=== PATIENT | female | born 1990 | race Caucasian/White ===

== ENCOUNTER 2023-06-25 21:06 | Outpatient (CLI) | payer BC | END 2023-06-25 21:07 | disposition left against medical advice (07) | LOC: EMS 21:06 | DX: R06.4 Hyperventilation (principal); R11.10 Vomiting, unspecified ==

== ENCOUNTER 2023-10-22 11:45 | Outpatient (CLI) | payer BC ==
[2023-10-22 14:43] LABS: BASOPHILS # (AUTO) 0.1 10^3/uL (0.0-0.1); BASOPHILS % (AUTO) 0.6 %; EOSINOPHILS # (AUTO) 0.3 10^3/uL (0.0-0.7); EOSINOPHILS % (AUTO) 2.7 %; HCT - HEMATOCRIT 43.2 % (37.0-47.0); LYMPHOCYTES % (AUTO) 31.2 %; MEAN CORPUSCULAR HEMOGLOBIN 29.5 pg (27.0-31.0); MEAN CORPUSCULAR HGB CONC 32.4 g/dL (32.0-36.0); MEAN CORPUSCULAR VOLUME 91.1 fL (81.0-99.0); MEAN PLATELET VOLUME 10.3 fL (7.9-10.8); MONOCYTES # (AUTO) 0.7 10^3/uL (0.0-1.0); MONOCYTES % (AUTO) 7.7 %; NEUTROPHILS # (AUTO) 5.6 10^3/uL (1.5-6.6); NEUTROPHILS % (AUTO) 57.5 %; PLT - PLATELET COUNT 321 10^3/uL (130-450); RED BLOOD COUNT 4.74 10^6/uL (4.20-5.40); RED CELL DISTRIBUTION WIDTH 12.3 % (12.0-15.0); WHITE BLOOD COUNT 9.7 x10^3/uL (4.8-10.8)
[2023-10-22 14:54] LABS: INR 1.1 (0.8-1.2); PT - PROTHROMBIN TIME 12.1 secs (9.9-12.6)
[2023-10-22 15:11] LABS: THYROID STIMULATING HORMONE 1.99 uIU/mL (0.34-5.60)
[2023-10-22 15:32] LABS: ALBUMIN 4.4 g/dL (3.2-5.5); ALBUMIN/GLOBULIN RATIO 1.6 (1.0-2.2); ALKALINE PHOSPHATASE 45 IU/L (42-121); ALT ALANINE AMINOTRANSFERASE 50 IU/L (10-60); AST ASPARTATE AMINOTRANSFERASE 22 IU/L (10-42); BILIRUBIN,TOTAL 0.6 mg/dL (0.2-1.0); BUN - BLOOD UREA NITROGEN 6 mg/dL (6-20); CALCIUM 9.3 mg/dL (8.5-10.3); CARBON DIOXIDE - CO2 22 mmol/L (21-32); CHLORIDE 106 mmol/L (101-111); CHOLESTEROL 177 mg/dL; CREATININE 0.5 mg/dL (0.6-1.3); GFR - MDRD 143 (>89); GLUCOSE 90 mg/dL (74-104); HDL CHOLESTEROL 44 mg/dL; LDL CHOLESTEROL,CALCULATED 108 mg/dL; LDL/HDL RATIO 2.5 (<4.4); POTASSIUM 3.8 mmol/L (3.5-4.5); SODIUM 135 mmol/L (135-145); TOTAL PROTEIN 7.2 g/dL (6.4-8.9); TRIGLYCERIDES 124 mg/dL (48-352); VLDL CHOLESTEROL 25 mg/dL
[2023-10-22 16:20] LABS: PARTIAL THROMBOPLASTIN TIME 28.1 secs (24.9-33.3)
[2023-10-22 20:03] LABS: ESTIMATED AVERAGE GLUCOSE 88 mg/dL (70-100); HEMOGLOBIN A1c% 4.7 % (4.27-6.07)
== END 2023-10-22 11:46 | disposition home or self-care (01) ==
LOC: LAB.S 11:45
PROVIDERS: ATTEND Physician Assistant Medical
DX: N93.9 Abnormal uterine and vaginal bleeding, unspecified (principal); Z13.9 Encounter for screening, unspecified
CPT/HCPCS: 36415; 80053; 80061; 83036; 83721; 84443; 85025; 85245; 85610; 85730

== ENCOUNTER 2023-10-24 08:00 | Outpatient (CLI) | payer BC ==
[2023-10-24 16:15] LABS: BILIRUBIN,URINE NEGATIVE (NEGATIVE); GLUCOSE, URINE (UA) NEGATIVE (NEGATIVE); KETONES,URINE (UA) NEGATIVE (NEGATIVE); LEUKOCYTE ESTERASE, URINE NEGATIVE (NEGATIVE); NITRITE,URINE NEGATIVE (NEGATIVE); OCCULT BLOOD,URINE NEGATIVE (NEGATIVE); PROTEIN,URINE NEGATIVE (NEGATIVE); UROBILINOGEN,URINE 0.2 (NORMAL) E.U./dL (NORMAL)
[2023-10-24 16:23] LABS: BACTERIA,URINE Few /HPF (None Seen); CLARITY,URINE CLEAR (CLEAR); RBC,URINE 0-5 /HPF (0-5); SQUAMOUS EPITHELIAL CELL,UR RARE Squamous (<= Few); WBC,URINE 0-3 /HPF (0-5)
== END 2023-10-24 23:59 | disposition home or self-care (01) ==
LOC: LAB.WC 08:00
PROVIDERS: ATTEND Obstetrics & Gynecology
DX: Z34.90 Encounter for supervision of normal pregnancy, unspecified, unspecified trimester (principal)
CPT/HCPCS: 81001; 87086

== ENCOUNTER 2023-11-05 13:16 | Outpatient (CLI) | payer BC ==
--- NOTE | 2023-11-05 18:03 | Ultrasound Report ---
PROCEDURE: OB 1st Trimester w/TV INDICATIONS: POSITIVE TEST OUTSIDE/PRIOR DATING DATA: Last menstrual period (LMP): 09/07/2023. LMP-based estimated date of delivery (SOTO): 06/13/2024. First dating scan (date and location): 11/05/2023. Estimated date of delivery (SOTO) from first dating scan: 06/12/2024. TECHNIQUE: Real-time scanning was performed of the fetus and maternal pelvic organs, with image documentation. Endovaginal scanning was also performed to better visualize the fetus and maternal ovaries. COMPARISON: None. FINDINGS: Intrauterine gestational sac present. Embryo: Linda-rump length measures 2.01 cm corresponding with an 8 week 4 day gestation Heart rate: 180 bpm. Other: No perigestational fluid collection. Measurement variability in dating: +/- 4 weeks by LMP, +/- 7 days by mean sac diameter (use before 6 weeks gestation if crown-rump length not able to be measured), +/- 5 days by crown-rump length (6-12 weeks gestation). Maternal organs: There is a 6.8 x 7.5 x 7.4 cm cystic nodule in the left ovary noted with trace vascu larity. Normal right ovary IMPRESSION: Single live intrauterine corresponds with an 8 week 4 day gestation. Largest 7.4 cm solid and cystic lesion associated with the left ovary may reflect a large hemorrhagic cyst with debris. Follow-up advised at 4-6 weeks Reviewed by: Williams Durán MD on 11/05/2023 5:01 PM [place] Approved by: Williams Durán MD on 11/05/2023 5:01 PM [place] Station ID: [id number]
== END 2023-11-05 13:17 | disposition home or self-care (01) ==
LOC: DI 13:16
PROVIDERS: ATTEND Obstetrics & Gynecology
DX: O99.891 Other specified diseases and conditions complicating pregnancy (principal); N83.9 Noninflammatory disorder of ovary, fallopian tube and broad ligament, unspecified; Z3A.08 8 weeks gestation of pregnancy

== ENCOUNTER 2023-11-21 12:20 | Outpatient (CLI) | payer BC ==
[2023-11-21 19:45] LABS: BILIRUBIN,URINE NEGATIVE (NEGATIVE); CLARITY,URINE CLOUDY (CLEAR); GLUCOSE, URINE (UA) NEGATIVE (NEGATIVE); KETONES,URINE (UA) NEGATIVE (NEGATIVE); LEUKOCYTE ESTERASE, URINE NEGATIVE (NEGATIVE); NITRITE,URINE NEGATIVE (NEGATIVE); OCCULT BLOOD,URINE NEGATIVE (NEGATIVE); PROTEIN,URINE NEGATIVE (NEGATIVE); UROBILINOGEN,URINE 0.2 (NORMAL) E.U./dL (NORMAL)
[2023-11-21 19:56] LABS: AMORPHOUS SEDIMENT,UR Marked /LPF; BACTERIA,URINE None Seen /HPF (None Seen); RBC,URINE None Seen /HPF (0-5); SQUAMOUS EPITHELIAL CELL,UR RARE Squamous (<= Few); WBC,URINE 0-3 /HPF (0-5)
[2023-11-23 07:10] LABS: HBsAG SCREEN Negative (Negative)
[2023-11-23 08:12] LABS: RPR Non Reactive (Non Reactive); VARICELLA-ZOSTER AB IGG 1677 index (Immune >165)
== END 2023-11-21 12:21 | disposition home or self-care (01) ==
LOC: LAB.S 12:20
PROVIDERS: ATTEND Obstetrics & Gynecology
DX: Z34.90 Encounter for supervision of normal pregnancy, unspecified, unspecified trimester (principal)
CPT/HCPCS: 36415; 81001; 85025; 86592; 86762; 86787; 86803; 86850; 86900; 86901; 87086; 87340; 87389

== ENCOUNTER 2023-11-23 08:00 | Outpatient (CLI) | payer BC ==
[2023-11-23 21:41] LABS: CHLAMYDIA TRACHOMATIS DNA NEGATIVE (NEGATIVE); NEISSERIA GONORRHOEAE DNA NEGATIVE (NEGATIVE); TRICHOMONAS VAGINALIS DNA NEGATIVE (NEGATIVE)
== END 2023-11-23 23:59 | disposition home or self-care (01) ==
LOC: LAB.WC 08:00
PROVIDERS: ATTEND Obstetrics & Gynecology
DX: Z34.90 Encounter for supervision of normal pregnancy, unspecified, unspecified trimester (principal)
CPT/HCPCS: 36415; 85025; 86803; 86850; 86900; 86901; 87389; 87491; 87591; 87661

== ENCOUNTER 2023-11-23 09:34 | Outpatient (CLI) | payer BC ==
[2023-11-23 14:50] LABS: BASOPHILS % (AUTO) 0.4 %; EOSINOPHILS # (AUTO) 0.2 10^3/uL (0.0-0.7); EOSINOPHILS % (AUTO) 2.1 %; HCT - HEMATOCRIT 38.9 % (37.0-47.0); HGB - HEMOGLOBIN 12.8 g/dL (12.0-16.0); LYMPHOCYTES # (AUTO) 2.2 10^3/uL (1.5-3.5); LYMPHOCYTES % (AUTO) 23.9 %; MEAN CORPUSCULAR HEMOGLOBIN 29.8 pg (27.0-31.0); MEAN CORPUSCULAR HGB CONC 32.9 g/dL (32.0-36.0); MEAN CORPUSCULAR VOLUME 90.5 fL (81.0-99.0); MEAN PLATELET VOLUME 11.6 fL (7.9-10.8); MONOCYTES # (AUTO) 0.6 10^3/uL (0.0-1.0); MONOCYTES % (AUTO) 6.2 %; NEUTROPHILS # (AUTO) 6.2 10^3/uL (1.5-6.6); NEUTROPHILS % (AUTO) 66.8 %; PLT - PLATELET COUNT 307 10^3/uL (130-450); RED CELL DISTRIBUTION WIDTH 12.7 % (12.0-15.0); WHITE BLOOD COUNT 9.3 x10^3/uL (4.8-10.8)
[2023-11-24 05:12] LABS: HCV AB Non Reactive (Non Reactive); HIV SCREEN 4TH GENERATION Non Reactive (Non Reactive)
== END 2023-11-23 09:35 | disposition home or self-care (01) ==
LOC: LAB.S 09:34
PROVIDERS: ATTEND Obstetrics & Gynecology
DX: Z34.90 Encounter for supervision of normal pregnancy, unspecified, unspecified trimester (principal)
CPT/HCPCS: 36415; 85025; 86803; 86850; 86900; 86901; 87389

== ENCOUNTER 2024-01-30 08:05 | Outpatient (CLI) | payer BC ==
--- NOTE | 2024-01-30 20:54 | Ultrasound Report ---
PROCEDURE: OB Anatomy Scan INDICATIONS: SUPERVISION OF OUTSIDE/PRIOR DATING DATA: Last menstrual period (LMP): 09/07/2023. LMP-based estimated date of delivery (SOTO): 06/13/2024. First dating scan (date and location): 11/05/2023. Estimated date of delivery (SOTO) from first dating scan: 06/12/2024. The below data below was generated using the working SOTO of 06/12/2024 TECHNIQUE: Real-time scanning was performed of the fetus, with image documentation and biometric measurements. Endovaginal scanning: Not performed. COMPARISON: 11/05/2023. FINDINGS: General: A single living intrauterine gestation is present. Presentation: Vertex Placenta: Placental position is anterior, without previa. Amniotic fluid index: 15.6 cm, within normal limits for gestational age. heart rate: 155 beats per minute. Maternal cervical canal: Closed and measures 5.3 cm long; normal length is 2.5 cm or more. biometrics: Biparietal diameter: 5.03 cm, 21 weeks, 2 days, 64.7% Head circumference: 18.6 cm, 21 weeks, 0 day, 44.2% Abdominal circumference: 17.2 cm, 22 weeks, 2 days, 84.4% Femur length: 3.5 cm, 21 weeks, 2 days, 54.4% Estimated gestational age from initial scan: 20 weeks, 6 days Composite gestational age from present scan: 21 weeks, 2 days Estimated weight and percentile: 442.1 g, 86.1% Measurement variability in biometric dating: +/- 10 days from 12-20 weeks gestation, +/- 2 weeks from 20-30 weeks gestation, +/- 3 weeks at 30 weeks gestation or later. Anatomic survey: Neuro: Ventricles are normal at less than 10 mm. Cisterna magna is normal at 3-11 mm. Cerebellum i s normal in size and morphology. Nuchal skin fold: Normal at less than 6 mm between 14 and 20 weeks gestational age. Face: Nose and lips, facial profile are normal. Spine: No evidence for spina bifida. Heart: 4-chambered heart is present, with normal ventricular outflow tracts. Diaphragm: Diaphragm is intact. Stomach: Left-sided stomach is present. Kidneys: No hydronephrosis. Normal is less than 5 mm in 2nd trimester, less than 7 mm in 3rd trimester. Cord: 3 vessel cord has orthotopic insertion. Bladder: Normal in size. Extremities: All 4 extremities are visualized. Complex appearing cystic structure is noted within left ovary and contains a solid component measures 8.2 x 6.7 x 7.5 cm in size. This is larger in size compared to previous study and previously measure s 7.4 x 6.8 x 7.5 cm. IMPRESSION: 1. Single live intrauterine gestation with fetus in vertex presentation. heart rate is 155 bpm. Normal amount of amniotic fluid. Normal growth with estimated weight at 86.1%. 2. Normal anatomic survey. 3. Interval increase in size of patient's known complex cyst in left ovary. Continued ultrasound foll ow-up is recommended. Reviewed by: Liban Alcala MD on 01/30/2024 8:53 PM PDT Approved by: Liban Alcala MD on 01/30/2024 8:53 PM PDT Station ID: [id number]
== END 2024-01-30 08:06 | disposition home or self-care (01) ==
LOC: DI 08:05
PROVIDERS: ATTEND Obstetrics & Gynecology
DX: O09.92 Supervision of high risk pregnancy, unspecified, second trimester (principal); O34.82 Maternal care for other abnormalities of pelvic organs, second trimester; N83.202 Unspecified ovarian cyst, left side; Z3A.21 21 weeks gestation of pregnancy

== ENCOUNTER 2024-02-05 12:47 | Outpatient (CLI) | payer BC ==
--- NOTE | 2024-02-06 09:13 | Ultrasound Report ---
LIMITED ULTRASOUND OF RIGHT BREAST: 02/05/2024 CLINICAL: Diffuse right breast pain, swelling, redness in lower inner quadrant. No prior exams were available for comparison. Color flow ultrasound of the right breast lower inner quadrant was performed. Gallo scale images of t he real-time examination were reviewed. Subcutaneous edema and skin thickening with increased vascularity are seen corresponding to the area of clinical concern at the lower inner quadrant fo the right breast. No focal fluid collection or abs cess. IMPRESSION: BENIGN Probable mastitis is seen at the area of interest in the right breast lower inner quadrant. No draina ble abscess is seen. Recommend clinical correlation and appropriate treatment if indicated. If sympto ms worsen or do not resolve after treatment, repeat ultrasound could be performed. There is no sonographic evidence of malignancy. Recommend annual screening mammograms beginning at age 40 if the patient is not at an increased risk for breast malignancy. This exam was interpreted at Station ID: [id number]. Electronically Signed By: Wilbur Nobles M.D. ar/:02/05/2024 20:17:32 letter sent: No_Letter Ultrasound BI-RADS: 2 Benign BI-RADS CATEGORY: (2) - 2 RECOMMENDATION: (ADDMAM) - Recommend additional mammographic views. no recall LATERALITY: (B)
== END 2024-02-05 12:48 | disposition home or self-care (01) ==
LOC: DI 12:47
PROVIDERS: ATTEND Obstetrics & Gynecology
DX: N63.10 Unspecified lump in the right breast, unspecified quadrant (principal)

== ENCOUNTER 2024-02-06 08:00 | Outpatient (CLI) | payer BC ==
[2024-02-06 16:10] LABS: BILIRUBIN,URINE NEGATIVE (NEGATIVE); GLUCOSE, URINE (UA) NEGATIVE (NEGATIVE); KETONES,URINE (UA) NEGATIVE (NEGATIVE); LEUKOCYTE ESTERASE, URINE NEGATIVE (NEGATIVE); NITRITE,URINE NEGATIVE (NEGATIVE); OCCULT BLOOD,URINE NEGATIVE (NEGATIVE); PH,URINE 7.5 PH (5.0-7.5); PROTEIN,URINE NEGATIVE (NEGATIVE); UROBILINOGEN,URINE 0.2 (NORMAL) E.U./dL (NORMAL)
[2024-02-06 16:21] LABS: CLARITY,URINE CLEAR (CLEAR)
[2024-02-06 16:38] LABS: BACTERIA,URINE Rare /HPF (None Seen); RBC,URINE 0-5 /HPF (0-5); SQUAMOUS EPITHELIAL CELL,UR FEW Squamous (<= Few); WBC,URINE 0-3 /HPF (0-5)
== END 2024-02-06 23:59 | disposition home or self-care (01) ==
LOC: LAB.WC 08:00
PROVIDERS: ATTEND Obstetrics & Gynecology
DX: O09.92 Supervision of high risk pregnancy, unspecified, second trimester (principal)
CPT/HCPCS: 81001; 87086

== ENCOUNTER 2024-04-16 08:27 | Outpatient (CLI) | payer BC ==
[2024-04-16 14:50] LABS: HCT - HEMATOCRIT 38.5 % (37.0-47.0); HGB - HEMOGLOBIN 12.7 g/dL (12.0-16.0); MEAN CORPUSCULAR HEMOGLOBIN 30.4 pg (27.0-31.0); MEAN CORPUSCULAR VOLUME 92.1 fL (81.0-99.0); MEAN PLATELET VOLUME 12.1 fL (7.9-10.8); RED BLOOD COUNT 4.18 10^6/uL (4.20-5.40); RED CELL DISTRIBUTION WIDTH 13.8 % (12.0-15.0)
[2024-04-17 05:14] LABS: RPR Non Reactive (Non Reactive)
== END 2024-04-16 08:28 | disposition home or self-care (01) ==
LOC: LAB.S 08:27
PROVIDERS: ATTEND Obstetrics & Gynecology
DX: O16.9 Unspecified maternal hypertension, unspecified trimester (principal)
CPT/HCPCS: 36415; 82950; 85027; 86592

== ENCOUNTER 2024-04-27 18:08 | Outpatient (CLI) | payer BC ==
[2024-04-27 18:40] VITALS: BP 139/86
--- NOTE | 2024-05-06 22:28 | PROCEDURE REPORT ---
- HPI Diagnosis/Indication for NST: Pre- Hypertension Current EDU 06/13/24 Gestation 33 Weeks and 2 Days 2 Para 0 Vital Signs Temperature 97.9 F 04/27/24 18:34 Heart Rate 93 04/27/24 18:34 Respiratory Rate 16 04/27/24 18:34 Blood Pressure 139/86 H 04/27/24 18:34 Temperature 97.9 F 04/27/24 18:34 Heart Rate 93 04/27/24 18:34 Respiratory Rate 16 04/27/24 18:34 Blood Pressure 139/86 H 04/27/24 18:34 O2 Saturation If not protocol: Oxygen Flow, liters/minute - NST Procedure NST Procedure Start Date 04/27/24 Start Time 18:32 Stop Time 18:52 Vibroacoustic Stimulation Used No Patient States Movement Yes - Results and Plan Findings/Impression: Reactive for of 32 weeks gestation or more. NST tracing contains at least two heart rate accelerations that are at least 15 beats per minute above the baseline rate and lasting at least 15 seconds from onset to return to baseline within a twenty minute period. Plan: care as scheduled.
== END 2024-04-27 19:05 | disposition home or self-care (01) ==
LOC: WFO 18:08 → FBP 18:29 → WFO 19:05
PROVIDERS: ATTEND Obstetrics & Gynecology
DX: O10.913 Unspecified pre-existing hypertension complicating pregnancy, third trimester (principal); Z3A.33 33 weeks gestation of pregnancy
CPT/HCPCS: 59025

== ENCOUNTER 2024-05-04 18:15 | Outpatient (CLI) | payer BC ==
[2024-05-04 18:41] VITALS: BP 123/80; O2SAT 100
--- NOTE | 2024-05-05 03:25 | PROCEDURE REPORT ---
- HPI Diagnosis/Indication for NST: Pre- Hypertension Current EDU 06/13/24 Gestation 34 Weeks and 2 Days 2 Para 1 Vital Signs Temperature 98.4 F 05/04/24 18:25 Temperature 98.4 F 05/04/24 18:25 Heart Rate 88 05/04/24 18:28 Respiratory Rate 18 05/04/24 18:28 Blood Pressure 123/80 05/04/24 18:28 O2 Saturation 100 05/04/24 18:28 If not protocol: Oxygen Flow, liters/minute - NST Procedure NST Procedure Start Date 05/04/24 Start Time 18:21 Stop Time 18:50 Vibroacoustic Stimulation Used No - Results and Plan Findings/Impression: Reactive, Cat 1 Plan: Discharge home with follow up in clinic as scheduled.
== END 2024-05-04 19:07 | disposition home or self-care (01) ==
LOC: WFO 18:15 → FBP 18:18 → WFO 19:07
PROVIDERS: ATTEND Obstetrics & Gynecology
DX: O10.913 Unspecified pre-existing hypertension complicating pregnancy, third trimester (principal); Z3A.34 34 weeks gestation of pregnancy
CPT/HCPCS: 59025

== ENCOUNTER 2024-05-11 18:17 | Outpatient (CLI) | payer BC ==
[2024-05-11 20:25] VITALS: O2SAT 96
--- NOTE | 2024-05-11 21:08 | PROVIDER PROGRESS NOTE ---
- HPI Current : Vital Signs Temperature 97.7 F 05/11/24 18:30 Blood Pressure 123/86 H 05/11/24 18:30 Temperature 97.7 F 05/11/24 18:30 Heart Rate 90 05/11/24 19:45 Respiratory Rate 30 H 05/11/24 19:45 Blood Pressure 138/90 H 05/11/24 19:45 O2 Saturation 96 05/11/24 19:45 If not protocol: Oxygen Flow, liters/minute 0 05/11/24 19:45 - Procedures OB Procedure Performed: NST Diagnosis/Indication for NST: Gestational Hypertension NST Procedure: NST Procedure Start Time 18:21 Stop Time 18:50 - Plan Plan: Patient is a 34-year-old G1, P0 at 35 weeks gestation here for NST. NST Performed 05/11/2024 NST Read 05/11/2024 FHT: 150 bpm baseline, moderate variability, accelerations absent, no decelerations. Nonreactive NST [place]: Quiescent BPP 04/24 Diagnosis 35 weeks gestation Gestational hypertension -Initially nonreactive NST followed by reassuring BPP. Prior to repeat echo heart racing did become reactive, but after NST timing. Reassuring tracing and BPP show patient was discharged with labor and preeclampsia precautions. Continue with scheduled OB care
--- NOTE | 2024-05-11 21:26 | Ultrasound Report ---
PROCEDURE: OB Biophysical Profile INDICATIONS: Non-reactive NST at 35wk gestation. OUTSIDE/PRIOR DATING DATA: Last menstrual period (LMP): 09/07/2023. LMP-based estimated date of delivery (SOTO): 06/13/2024. First dating scan (date and location): 10/31/2023. Estimated date of delivery (SOTO) from first dating scan: 06/12/2024. TECHNIQUE: Real-time scanning was performed of the fetus, with image documentation. Biophysical pro file was also obtained. COMPARISON: 01/30/2024, 11/05/2023 FINDINGS: General: A single live intrauterine gestation is present. Presentation: Vertex Placenta: Placental position is anterior, without previa. Amniotic fluid index: 9.5 cm, within normal limits for gestational age. heart rate: 145 beats per minute. Maternal cervical canal: Closed, 4.1 cm long; normal length is 2.5 cm or more. Biophysical profile: Tone: 2 points. Movement: 2 points. Respiration: 2 points. Largest pocket of fluid: 2 points. A complex left ovarian cyst is again seen measuring 7.2 x 6.5 x 5.9 cm. IMPRESSION: Normal biophysical profile, 8/8 points. Complex left ovarian cyst again seen. Note: Concordant preliminary findings given by the driveway attendant upon the completion of the examination to the labor and delivery nurse at 9:15 PM on 05/11/2024. Reviewed by: Artur Rodgers MD on 05/11/2024 8:25 PM [facility] Approved by: Artur Rodgers MD on 05/11/2024 8:25 PM [facility] Station ID: [id number]
[2024-05-11 23:54] VITALS: BP 127/82
== END 2024-05-11 21:20 | disposition home or self-care (01) ==
LOC: WFO 18:17 → FBP 18:32 → WFO 21:20
PROVIDERS: ATTEND Obstetrics & Gynecology
DX: O13.3 Gestational [pregnancy-induced] hypertension without significant proteinuria, third trimester (principal); Z3A.35 35 weeks gestation of pregnancy
CPT/HCPCS: 59025; 99215

== ENCOUNTER 2024-05-13 22:37 | Observation (INO) | payer BC ==
--- NOTE | 2024-05-13 23:05 | ED Physician Documentation ---
History of Present Illness - Stated complaint Stated Complaint: PREG/COUGH/SOA - Chief complaint Chief Complaint: Resp - Additonal information Additional information: 34-year-old at roughly 35 wga presents with cough. She states that she has been feeling sick for 4 to 5 days. She has had viral symptoms, with productive cough with nonbloody sputum. She denies fevers. She has had myalgias. She has also felt short of breath. She was COVID positive today. No recent antibiotics or antibiotic allergies. No excessive radiation during . She has hypertension but denies other problems with the . She feels baby moving still. No vaginal bleeding, loss of fluids or contractions. No chest or back or abdominal or flank pain. No leg swelling or leg pain. No other new concerns. She is here with family. ROS Constitutional: no fever, no chills Eyes: no visual disturbance, no discharge Ears, Nose, Mouth, Throat: no rhinorrhea, no sore throat Cardiovascular: no chest pain, no palpitations Respiratory: +cough, shortness of breath Gastrointestinal: no abdominal pain, no vomiting, no diarrhea Genitourinary: no dysuria, no hematuria Musculoskeletal: no back pain, no neck stiffness Skin: no rash, no wound Neurological: no focal weakness, no focal numbness PD PAST MEDICAL HISTORY - Past Medical History Past Medical History: No - Past Surgical History Past Surgical History: No HEENT: Tonsil/Adenoidectomy - Present Medications Home Medications: Ambulatory Orders Medication Instructions Recorded Confirmed Labetalol [Trandate] 100 mg PO DAILY 05/13/24 05/13/24 - Allergies Allergies/Adverse Reactions: Allergies Allergy/AdvReac Type Severity Reaction Status Date / Time latex Allergy Rash Verified 05/13/24 22:50 nickel Allergy Rash Verified 05/13/24 22:50 - Social History Does the pt smoke?: No Smoking Status: Never smoker Does the pt drink ETOH?: No Does the pt have substance abuse?: No - Immunizations Immunizations are current?: Yes - POLST Patient has POLST: No PD ED PE NORMAL - Free text exam Free text exam: Const: no acute distress, non toxic appearing; calm, conversant, pleasant thuogh with frequent cough Eyes: PERRLA, EOMI ENT: mucous membranes moist Neck: supple, non-tender Resp: no respiratory distress, clear on R side but with scattered crackles to L side Card: regular rate and rhythm, no murmurs Abd: non tender diffusely, gravid uterus with fundus above umbilicus, no rigidity or rebound or guarding Back: no T or L spine tenderness, no CVA tenderness bilaterally Extrem: no deformities, no swelling bilateral lower extremities, 2+ distal pulses all extremities Neuro: ANOx4, general assembler installer grossly intact, grossly intact sensation and strength all extremities Skin: no rash, warm and dry Results - Vitals Vitals: Vital Signs - 24 hr 05/13/24 05/13/24 05/14/24 22:41 22:51 00:51 Temperature 36.7 C Heart Rate 99 90 94 Respiratory 18 18 18 Rate Blood Pressure 169/105 H 158/96 H 165/100 H O2 Saturation 99 99 98 05/14/24 05/14/24 01:36 03:17 Temperature Heart Rate 89 89 Respiratory 16 18 Rate Blood Pressure 137/89 H 140/87 H O2 Saturation 98 96 Oxygen O2 Source Room air - EKG (time done) EKG NSR without acute ischemia or immediately concerning interval prolongation on my review EKG releavant findings:: EKG personally interpreted by author of this note. Relevant findings are: - Labs Labs: Laboratory Tests 05/14/24 05/14/24 05/14/24 01:07 01:07 01:07 WBC 11.2 H RBC 3.96 L Hgb 12.4 Hct 35.7 L MCV 90.2 MCH 31.3 H MCHC 34.7 RDW 13.8 Plt Count 261 MPV 10.4 Neut # (Auto) 7.5 H Lymph # (Auto) 2.3 [place] # (Auto) 1.1 H Eos # (Auto) 0.2 Baso # (Auto) 0.0 Absolute Nucleated RBC 0.00 Nucleated RBC % 0.0 Sodium 135 Potassium 3.6 Chloride 106 Carbon Dioxide 20 L Anion Gap 9.0 BUN 6 Creatinine 0.3 L Estimated GFR (MDRD) 256 Glucose 88 Calcium 9.1 Total Bilirubin 0.2 AST 14 ALT 19 Alkaline Phosphatase 123 H Troponin I High Sens 3.1 B-Natriuretic Peptide 19 Total Protein 6.5 Albumin 3.2 Globulin 3.3 Albumin/Globulin Ratio 1.0 Lipase 13 Urine Color Urine Clarity Urine pH Ur Specific [place] Urine Protein Urine Glucose (UA) Urine Ketones Urine Occult Blood Urine Nitrite Urine Bilirubin Urine Urobilinogen Ur Leukocyte Esterase Urine RBC Urine WBC Ur Squamous Epith Cells Urine Bacteria Urine Culture Comments 05/14/24 01:48 WBC RBC Hgb Hct MCV MCH MCHC RDW Plt Count MPV Neut # (Auto) Lymph # (Auto) [place] # (Auto) Eos # (Auto) Baso # (Auto) Absolute Nucleated RBC Nucleated RBC % Sodium Potassium Chloride Carbon Dioxide Anion Gap BUN Creatinine Estimated GFR (MDRD) Glucose Calcium Total Bilirubin AST ALT Alkaline Phosphatase Troponin I High Sens B-Natriuretic Peptide Total Protein Albumin Globulin Albumin/Globulin Ratio Lipase Urine Color YELLOW Urine Clarity CLEAR Urine pH 6.0 Ur Specific [place] 1.025 Urine Protein NEGATIVE Urine Glucose (UA) NEGATIVE Urine Ketones NEGATIVE Urine Occult Blood NEGATIVE Urine Nitrite NEGATIVE Urine Bilirubin NEGATIVE Urine Urobilinogen 0.2 (NORMAL) Ur Leukocyte Esterase NEGATIVE Urine RBC 0-5 Urine WBC 0-3 Ur Squamous Epith Cells FEW Squamous Urine Bacteria Rare Urine Culture Comments NOT INDICATED - Rads (name of study) Chest XR Relevant Findings:: See rad report, Other (No acute findings on my independent review of imaging.) PD Medical Decision Making - ED course ED course: This patients presentation is most suggestive of viral syndrome such as COVID (on clarification, tested positive earlier), with pneumonia possible in the setting of respiratory findings as above. Patient has clear infectious symptoms and signs, with pulmonary embolism, ACS, coronary artery dissection, pneumothorax, myocarditis, CHF, COPD very unlikely clinically. While we attempt to limit radiation during , given her focal breath sounds I do feel it is in her best interests to obtain CXR to assess for focal PNA; after discussion of risks and benefits with patient and family, they agree. I am obtaining a single view chest x-ray, viral swab, and giving Tylenol and will closely reassess. Ambulation trial: patient did well with ambulation, satting high 90s on RA. EKG: EKG normal sinus rhythm without acute ischemia or immediately concerning interval prolongation. CXR: no acute findings In setting of hypertension, I am adding CBC, CMP, troponin, UA, lipase. L&D coming to perform toco. Note patient is on labetalol 100mg PO Qday. BP 136/90 at 1:35AM, improving. CBC shows mild leukocytosis, decreased from April 16 when it was 12, now 11.2 in setting of third trimester . Hemoglobin 12.4. No thrombocytopenia. Mild alk phos elevation, no ALT or AST or bilirubin elevation. High sensitivity troponin very reassuring, within normal limits. Lipase reassuring. monitoring reassuring, as per L&D note. Patient also feeling improved. She ambulates without difficulty. UA: reassuring, no clear protein, no LE or WBCs; rare bacteria noted though this is likely contamination in setting of squams I am consulting OB to discuss elevated blood pressure and this work up. OB: I spoke with Dr. Lofton at 03:15, reviewing case, presentation and ED course. She recommends admission to observation given elevated blood pressure. This presentation is most consistent with COVID. This and anxiety may have contributed to elevated BP, however I agree that out of caution, admission for monitoring is reasonable. Updated patient and spouse who agree. Admitting in stable condition. She is satting well on RA, neurovascularly intact, with benign abdomen, no new concerns, comfortable. Departure - Departure Disposition: 66 [facility] DC/Xfer Clinical Impression: COVID, Third trimester , Elevated blood pressure reading Forms: PCP List
[2024-05-14] MEDS: ACETAMINOPHEN 500 MG TABLET PO STA (00:16)
[2024-05-14 01:15] LABS: BASOPHILS % (AUTO) 0.4 %; EOSINOPHILS # (AUTO) 0.2 10^3/uL (0.0-0.7); EOSINOPHILS % (AUTO) 1.9 %; HCT - HEMATOCRIT 35.7 % (37.0-47.0); HGB - HEMOGLOBIN 12.4 g/dL (12.0-16.0); LYMPHOCYTES # (AUTO) 2.3 10^3/uL (1.5-3.5); LYMPHOCYTES % (AUTO) 20.4 %; MEAN CORPUSCULAR HEMOGLOBIN 31.3 pg (27.0-31.0); MEAN CORPUSCULAR HGB CONC 34.7 g/dL (32.0-36.0); MEAN CORPUSCULAR VOLUME 90.2 fL (81.0-99.0); MEAN PLATELET VOLUME 10.4 fL (7.9-10.8); MONOCYTES # (AUTO) 1.1 10^3/uL (0.0-1.0); MONOCYTES % (AUTO) 9.8 %; NEUTROPHILS # (AUTO) 7.5 10^3/uL (1.5-6.6); NEUTROPHILS % (AUTO) 67.1 %; PLT - PLATELET COUNT 261 10^3/uL (130-450); RED BLOOD COUNT 3.96 10^6/uL (4.20-5.40); RED CELL DISTRIBUTION WIDTH 13.8 % (12.0-15.0); WHITE BLOOD COUNT 11.2 x10^3/uL (4.8-10.8)
[2024-05-14 01:35] LABS: ALBUMIN 3.2 g/dL (3.2-5.5); BILIRUBIN,TOTAL 0.2 mg/dL (0.2-1.0); CALCIUM 9.1 mg/dL (8.5-10.3); CREATININE 0.3 mg/dL (0.6-1.3); POTASSIUM 3.6 mmol/L (3.5-4.5); TOTAL PROTEIN 6.5 g/dL (6.4-8.9)
[2024-05-14 01:37] LABS: TROPONIN I HIGH SENSITIVITY 3.1 ng/L (2.3-14.8)
[2024-05-14 02:20] LABS: BILIRUBIN,URINE NEGATIVE (NEGATIVE); GLUCOSE, URINE (UA) NEGATIVE (NEGATIVE); KETONES,URINE (UA) NEGATIVE (NEGATIVE); LEUKOCYTE ESTERASE, URINE NEGATIVE (NEGATIVE); NITRITE,URINE NEGATIVE (NEGATIVE); OCCULT BLOOD,URINE NEGATIVE (NEGATIVE); PROTEIN,URINE NEGATIVE (NEGATIVE); UROBILINOGEN,URINE 0.2 (NORMAL) E.U./dL (NORMAL)
[2024-05-14 02:24] LABS: CLARITY,URINE CLEAR (CLEAR)
[2024-05-14 02:28] LABS: BACTERIA,URINE Rare /HPF (None Seen); RBC,URINE 0-5 /HPF (0-5); SQUAMOUS EPITHELIAL CELL,UR FEW Squamous (<= Few); WBC,URINE 0-3 /HPF (0-5)
[2024-05-14] MEDS ORDERED: ONDANSETRON 4 MG/2 ML VIAL IVP PRN (04:54)
[2024-05-14] MEDS ORDERED: ONDANSETRON ODT 4 MG TABLET TL PRN (04:54)
[2024-05-14] MEDS ORDERED: SODIUM CHLORIDE FLUSH 0.9% 10 ML SYRINGE IVP PRN (04:54)
[2024-05-14] MEDS ORDERED: ENOXAPARIN 40 MG/0.4 ML SYRINGE SUBQ SCH (05:01)
--- NOTE | 2024-05-14 05:05 | HISTORY & PHYSICAL EXAMINATION ---
Admit History - Visit Reason Visit Reason: Other (Covid and elevated bps) - : 2 Parity: 0 : 1 Care: positive: [facility] Risk/History: positive: High risk (hypertension on labetolol 100 mg bid, obesity with bmi 40+) Complications This : positive: Chronic HTN Smoking Status: Never smoker - Mother's Labs GBS: positive: Other (will collect) Rubella Status: positive: Immune - Other Maternal History Other Maternal History: presents to the ER today with + covid test. on evaluation there had multiple severe range bps. had not taken her evening dose of labetolol. bps settled down on their own and are ok now. sick with covid and sats sometimes in high 80s or low 90s. c/b 1. htn on labetolol, followed by . last us was last week 04/29/24. EFW 2240g 44%ile. ELIZA 12.4 cm. 2. 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 3. obesity with BMI over 40 4. failed her 1 hr glucose at 165 and did not do 3 hr glucose yet. will do profiling while here. - HPI Vital Signs Temperature 98.1 F 05/13/24 22:41 Heart Rate 99 05/13/24 22:41 Respiratory Rate 18 05/13/24 22:41 Blood Pressure 169/105 H 05/13/24 22:41 O2 Saturation 99 05/13/24 22:41 Temperature 98.1 F 05/13/24 22:41 Heart Rate 89 05/14/24 03:17 Respiratory Rate 18 05/14/24 03:17 Blood Pressure 140/87 H 05/14/24 03:17 O2 Saturation 96 05/14/24 03:17 If not protocol: Oxygen Flow, liters/minute - NST Procedure NST Procedure Start Time 19:17 Stop Time 19:42 Meds/Allgy - Home Medications Home Medications: Ambulatory Orders Medication Instructions Recorded Confirmed Labetalol [Trandate] 100 mg PO BID 05/13/24 05/14/24 - Allergies Allergies/Adverse Reactions: Allergies Allergy/AdvReac Type Severity Reaction Status Date / Time latex Allergy Rash Verified 05/13/24 22:50 nickel Allergy Rash Verified 05/13/24 22:50 Review of Systems - Constitutional Constitutional: reports: Fatigue, Fever - Respiratory Respiratory: reports: Cough, Wheezing - Other Findings Other Findings: baby moving well. no contractions. no headaches Physical - Abdominal Exam Vital Signs: Temp Pulse Resp BP Pulse Ox O2 Flow Rate 98.1 F 89 18 140/87 H 96 05/13/24 22:41 05/14/24 03:17 05/14/24 03:17 05/14/24 03:17 05/14/24 03:17 Contraction Frequency (min/apart): none Contraction Intensity: positive: Other (none) - Monitoring Strip Review: positive: Category I - Presentation Presentation: positive: Vertex - Vaginal Exam Membranes: positive: Membranes intact - Speculum Exam Speculum Exam Performed: positive: No - Other Notes Labor Progress Note/Additional Text: not in labor Plan for Labor - Plan For Labor I expect patient to be DC'd or transferred within 96 hours.: Yes Plan for Labor: 35 w 5d with covid. some decreasing sats. severe range bp in ER then settled down. NST in ER reactive. Admit for observation to be sure that she is satting well and that her bps are not in severe range. NST bid continuous pulse ox for now. Albuterol prn consider paxlovid if not better later in am recheck labs 10 am. hospitalist consult ordered if bps into severe range again, consider transfer to . Care discussed with Dr. Luo of at 0330. She agrees with plan given that bps are in normal range now. glucose profiling while here as failed 1 hr and no 3 hr yet.
[2024-05-14] MEDS: LABETALOL 100 MG TABLET PO SCH ×2 (05:25→21:42)
[2024-05-14] MEDS: ENOXAPARIN 40 MG/0.4 ML SYRINGE SUBQ SCH (05:26)
--- NOTE | 2024-05-14 05:27 | PROCEDURE REPORT ---
- HPI Diagnosis/Indication for NST: Pre- Hypertension Current in ER with covid. EDU 06/13/24 Gestation 35 Weeks and 5 Days 2 Vital Signs Temperature 98.1 F 05/13/24 22:41 Heart Rate 99 05/13/24 22:41 Respiratory Rate 18 05/13/24 22:41 Blood Pressure 169/105 H 05/13/24 22:41 O2 Saturation 99 05/13/24 22:41 Temperature 97.9 F 05/14/24 04:57 Heart Rate 92 05/14/24 04:57 Respiratory Rate 18 05/14/24 04:57 Blood Pressure 134/83 H 05/14/24 04:57 O2 Saturation 96 05/14/24 03:17 If not protocol: Oxygen Flow, liters/minute - NST Procedure NST Procedure Start Time 19:17 Stop Time 19:42 - Results and Plan Findings/Impression: Reactive for of 32 weeks gestation or more. NST tracing contains at least two heart rate accelerations that are at least 15 beats per minute above the baseline rate and lasting at least 15 seconds from onset to return to baseline within a twenty minute period. Plan: ADMIT for obs
[2024-05-14] MEDS: ALBUTEROL 1 PUFF INH STA (05:43)
[2024-05-14] MEDS ORDERED: ALBUTEROL NEB 2.5 MG/3 ML INH PRN (05:49)
[2024-05-14 05:54] LABS: CREATININE,URINE 91.9 mg/dL; PROTEIN/CREATININE RATIO,URINE 0.1 (<=0.2)
[2024-05-14] MEDS: PANTOPRAZOLE 40 MG TABLET PO SCH (06:23)
[2024-05-14] MEDS: ALBUTEROL NEB 2.5 MG/3 ML INH STA (06:46)
[2024-05-14] MEDS ORDERED: LANSOPRAZOLE 15 MG CAPSULE PO SCH (07:00)
--- NOTE | 2024-05-14 08:03 | XRAY Report ---
PROCEDURE: Chest 1V INDICATIONS: COVID, assess for PNA; pt , consents TECHNIQUE: One view of the chest was acquired. COMPARISON: None. FINDINGS: Surgical changes and devices: None. Lungs and pleura: No pleural effusions or pneumothorax. Lungs are clear. Mediastinum: Mediastinal contours appear normal. Heart size is normal. Bones and chest wall: No suspicious bony lesions. Overlying soft tissues appear unremarkable. IMPRESSION: No acute cardiopulmonary process. Reviewed by: Washington Loo MD on 05/14/2024 8:01 AM PDT Approved by: Washington Loo MD on 05/14/2024 8:01 AM PDT Station ID: [id number]
[2024-05-14] MEDS: ACETAMINOPHEN 325 MG TABLET PO PRN (08:32)
[2024-05-14] MEDS: ASPIRIN CHEW 81 MG TABLET PO SCH (08:42)
[2024-05-14] MEDS ORDERED: LABETALOL 100 MG TABLET PO SCH (09:00)
[2024-05-14 10:04] LABS: BASOPHILS % (AUTO) 0.2 %; EOSINOPHILS # (AUTO) 0.2 10^3/uL (0.0-0.7); EOSINOPHILS % (AUTO) 1.9 %; HCT - HEMATOCRIT 34.1 % (37.0-47.0); HGB - HEMOGLOBIN 11.5 g/dL (12.0-16.0); LYMPHOCYTES # (AUTO) 2.6 10^3/uL (1.5-3.5); LYMPHOCYTES % (AUTO) 23.3 %; MEAN CORPUSCULAR HEMOGLOBIN 30.7 pg (27.0-31.0); MEAN CORPUSCULAR HGB CONC 33.7 g/dL (32.0-36.0); MEAN CORPUSCULAR VOLUME 90.9 fL (81.0-99.0); MEAN PLATELET VOLUME 10.5 fL (7.9-10.8); MONOCYTES # (AUTO) 1.1 10^3/uL (0.0-1.0); MONOCYTES % (AUTO) 9.4 %; NEUTROPHILS # (AUTO) 7.3 10^3/uL (1.5-6.6); NEUTROPHILS % (AUTO) 64.8 %; PLT - PLATELET COUNT 238 10^3/uL (130-450); RED BLOOD COUNT 3.75 10^6/uL (4.20-5.40); RED CELL DISTRIBUTION WIDTH 13.8 % (12.0-15.0); WHITE BLOOD COUNT 11.2 x10^3/uL (4.8-10.8)
[2024-05-14 10:17] LABS: BILIRUBIN,TOTAL 0.3 mg/dL (0.2-1.0); CALCIUM 8.9 mg/dL (8.5-10.3); CREATININE 0.4 mg/dL (0.6-1.3); POTASSIUM 3.4 mmol/L (3.5-4.5); TOTAL PROTEIN 6.1 g/dL (6.4-8.9)
[2024-05-14] MEDS: ALBUTEROL 1 PUFF INH PRN ×2 (10:32→21:35)
[2024-05-14] MEDS: REMDESIVIR 200 MG in SODIUM CHLORIDE 0.9% 210 ML IV ONE (10:55)
[2024-05-14 11:50] LABS: ESTIMATED AVERAGE GLUCOSE 85 mg/dL (70-100); HEMOGLOBIN A1c% 4.6 % (4.27-6.07)
[2024-05-14] MEDS: BENZOCAINE/MENTHOL LOZENGE MM PRN (11:55)
--- NOTE | 2024-05-14 15:41 | PHARMACY PROGRESS NOTE ---
- Best Possible Medication History Admit Date and Time: 05/14/24 0425 Processed by: Pharmacy Medication History completed: Yes Patient Interview: Completed Secondary Source(s): Caregiver, Insurance records (PER [employer] RECORD AND [employer] RN PT INTERVIEW) As the person ultimately responsible for medication therapy, providers are able to order a medication from an existing home medication list in [facility] via the "Reconcile Routine" prior to Confirmation of that medication by direct support staff member. Such practice is discouraged except when the physician, in their clinical judgment, deems that a medical need exists for a medication without regard to p revious use.
--- NOTE | 2024-05-14 18:34 | PROVIDER PROGRESS NOTE ---
Subjective - Subjective Subjective: Patient feeling a little better. Feels like her chest is "opening up" but still using oxygen. Saturation dropped while sleeping to low 90s. Objective - Vital Signs/Intake & Output Reviewed Vital Signs: Yes Vital Signs: Vital Signs x48h Temp Pulse Pulse Resp BP Pulse Ox O2 Flow Rate 05/14/24 16:56 98.4 F 85 20 136/85 H 95 0 05/14/24 13:37 98.2 F 90 18 113/64 05/14/24 12:24 96 H 0 05/14/24 10:36 88 18 Intake & Output: Intake & Output 05/11/24 05/12/24 05/13/24 05/14/24 23:59 23:59 23:59 23:59 Intake Total 250 Balance 250 - Objective General Appearance: positive: No acute distress Respiratory: positive: No respiratory distress, Other (Nasal oxygen) - Lab Results Fish Bones: 05/14/24 10:00 05/14/24 10:00 Other Labs: Lab Results x24hrs 05/14/24 05/14/24 05/14/24 Range/Units 14:30 10:37 10:00 WBC (4.8-10.8) x10^3/uL RBC (4.20-5.40) 10^6/uL Hgb (12.0-16.0) g/dL Hct (37.0-47.0) % MCV (81.0-99.0) fL MCH (27.0-31.0) pg MCHC (32.0-36.0) g/dL RDW (12.0-15.0) % Plt Count (130-450) 10^3/uL MPV (7.9-10.8) fL Neut # (Auto) (1.5-6.6) 10^3/uL Lymph # (Auto) (1.5-3.5) 10^3/uL [place] # (Auto) (0.0-1.0) 10^3/uL Eos # (Auto) (0.0-0.7) 10^3/uL Baso # (Auto) (0.0-0.1) 10^3/uL Absolute Nucleated RBC x10^3/uL Nucleated RBC % /100WBC Sodium (135-145) mmol/L Potassium (3.5-4.5) mmol/L Chloride (101-111) mmol/L Carbon Dioxide (21-32) mmol/L Anion Gap (6-13) BUN (6-20) mg/dL Creatinine (0.6-1.3) mg/dL Estimated GFR (MDRD) (>89) Glucose (74-104) mg/dL POC Whole Bld Glucose 88 102 H (70 - 100) mg/dL Estimat Average Glucose 85 (70-100) mg/dL Hemoglobin A1c % 4.6 (4.27-6.07) % Calcium (8.5-10.3) mg/dL Total Bilirubin (0.2-1.0) mg/dL AST (10-42) IU/L ALT (10-60) IU/L Alkaline Phosphatase (42-121) IU/L Troponin I High Sens (2.3-14.8) ng/L B-Natriuretic Peptide (5-100) pg/mL Total Protein (6.4-8.9) g/dL Albumin (3.2-5.5) g/dL Globulin (2.1-4.2) g/dL Albumin/Globulin Ratio (1.0-2.2) Lipase (11-82) U/L Urine Color Urine Clarity (CLEAR) Urine pH (5.0-7.5) PH Ur Specific [place] (1.002-1.030) Urine Protein (NEGATIVE) mg/dL Urine Glucose (UA) (NEGATIVE) mg/dL Urine Ketones (NEGATIVE) mg/dL Urine Occult Blood (NEGATIVE) Urine Nitrite (NEGATIVE) Urine Bilirubin (NEGATIVE) Urine Urobilinogen (NORMAL) E.U./dL Ur Leukocyte Esterase (NEGATIVE) Urine RBC (0-5) /HPF Urine WBC (0-5) /HPF Ur Squamous Epith Cells (<= Few) Urine Bacteria (None Seen) /HPF Urine Culture Comments Urine Creatinine mg/dL Ur Total Protein Timed mg/dL Protein/Creatinin Ratio (<=0.2) 05/14/24 05/14/24 05/14/24 Range/Units 10:00 10:00 01:48 WBC 11.2 H (4.8-10.8) x10^3/uL RBC 3.75 L (4.20-5.40) 10^6/uL Hgb 11.5 L (12.0-16.0) g/dL Hct 34.1 L (37.0-47.0) % MCV 90.9 (81.0-99.0) fL MCH 30.7 (27.0-31.0) pg MCHC 33.7 (32.0-36.0) g/dL RDW 13.8 (12.0-15.0) % Plt Count 238 (130-450) 10^3/uL MPV 10.5 (7.9-10.8) fL Neut # (Auto) 7.3 H (1.5-6.6) 10^3/uL Lymph # (Auto) 2.6 (1.5-3.5) 10^3/uL [place] # (Auto) 1.1 H (0.0-1.0) 10^3/uL Eos # (Auto) 0.2 (0.0-0.7) 10^3/uL Baso # (Auto) 0.0 (0.0-0.1) 10^3/uL Absolute Nucleated RBC 0.00 x10^3/uL Nucleated RBC % 0.0 /100WBC Sodium 135 (135-145) mmol/L Potassium 3.4 L (3.5-4.5) mmol/L Chloride 106 (101-111) mmol/L Carbon Dioxide 20 L (21-32) mmol/L Anion Gap 9.0 (6-13) BUN 5 L (6-20) mg/dL Creatinine 0.4 L (0.6-1.3) mg/dL Estimated GFR (MDRD) 184 (>89) Glucose 109 H (74-104) mg/dL POC Whole Bld Glucose (70 - 100) mg/dL Estimat Average Glucose (70-100) mg/dL Hemoglobin A1c % (4.27-6.07) % Calcium 8.9 (8.5-10.3) mg/dL Total Bilirubin 0.3 (0.2-1.0) mg/dL AST 15 (10-42) IU/L ALT 19 (10-60) IU/L Alkaline Phosphatase 118 (42-121) IU/L Troponin I High Sens (2.3-14.8) ng/L B-Natriuretic Peptide (5-100) pg/mL Total Protein 6.1 L (6.4-8.9) g/dL Albumin 3.0 L (3.2-5.5) g/dL Globulin 3.1 (2.1-4.2) g/dL Albumin/Globulin Ratio 1.0 (1.0-2.2) Lipase (11-82) U/L Urine Color Urine Clarity (CLEAR) Urine pH (5.0-7.5) PH Ur Specific [place] (1.002-1.030) Urine Protein (NEGATIVE) mg/dL Urine Glucose (UA) (NEGATIVE) mg/dL Urine Ketones (NEGATIVE) mg/dL Urine Occult Blood (NEGATIVE) Urine Nitrite (NEGATIVE) Urine Bilirubin (NEGATIVE) Urine Urobilinogen (NORMAL) E.U./dL Ur Leukocyte Esterase (NEGATIVE) Urine RBC (0-5) /HPF Urine WBC (0-5) /HPF Ur Squamous Epith Cells (<= Few) Urine Bacteria (None Seen) /HPF Urine Culture Comments Urine Creatinine 91.9 mg/dL Ur Total Protein Timed 13 mg/dL Protein/Creatinin Ratio 0.1 (<=0.2) 05/14/24 05/14/24 05/14/24 Range/Units 01:48 01:07 01:07 WBC (4.8-10.8) x10^3/uL RBC (4.20-5.40) 10^6/uL Hgb (12.0-16.0) g/dL Hct (37.0-47.0) % MCV (81.0-99.0) fL MCH (27.0-31.0) pg MCHC (32.0-36.0) g/dL RDW (12.0-15.0) % Plt Count (130-450) 10^3/uL MPV (7.9-10.8) fL Neut # (Auto) (1.5-6.6) 10^3/uL Lymph # (Auto) (1.5-3.5) 10^3/uL [place] # (Auto) (0.0-1.0) 10^3/uL Eos # (Auto) (0.0-0.7) 10^3/uL Baso # (Auto) (0.0-0.1) 10^3/uL Absolute Nucleated RBC x10^3/uL Nucleated RBC % /100WBC Sodium 135 (135-145) mmol/L Potassium 3.6 (3.5-4.5) mmol/L Chloride 106 (101-111) mmol/L Carbon Dioxide 20 L (21-32) mmol/L Anion Gap 9.0 (6-13) BUN 6 (6-20) mg/dL Creatinine 0.3 L (0.6-1.3) mg/dL Estimated GFR (MDRD) 256 (>89) Glucose 88 (74-104) mg/dL POC Whole Bld Glucose (70 - 100) mg/dL Estimat Average Glucose (70-100) mg/dL Hemoglobin A1c % (4.27-6.07) % Calcium 9.1 (8.5-10.3) mg/dL Total Bilirubin 0.2 (0.2-1.0) mg/dL AST 14 (10-42) IU/L ALT 19 (10-60) IU/L Alkaline Phosphatase 123 H (42-121) IU/L Troponin I High Sens 3.1 (2.3-14.8) ng/L B-Natriuretic Peptide 19 (5-100) pg/mL Total Protein 6.5 (6.4-8.9) g/dL Albumin 3.2 (3.2-5.5) g/dL Globulin 3.3 (2.1-4.2) g/dL Albumin/Globulin Ratio 1.0 (1.0-2.2) Lipase 13 (11-82) U/L Urine Color YELLOW Urine Clarity CLEAR (CLEAR) Urine pH 6.0 (5.0-7.5) PH Ur Specific [place] 1.025 (1.002-1.030) Urine Protein NEGATIVE (NEGATIVE) mg/dL Urine Glucose (UA) NEGATIVE (NEGATIVE) mg/dL Urine Ketones NEGATIVE (NEGATIVE) mg/dL Urine Occult Blood NEGATIVE (NEGATIVE) Urine Nitrite NEGATIVE (NEGATIVE) Urine Bilirubin NEGATIVE (NEGATIVE) Urine Urobilinogen 0.2 (NORMAL) (NORMAL) E.U./dL Ur Leukocyte Esterase NEGATIVE (NEGATIVE) Urine RBC 0-5 (0-5) /HPF Urine WBC 0-3 (0-5) /HPF Ur Squamous Epith Cells FEW Squamous (<= Few) Urine Bacteria Rare (None Seen) /HPF Urine Culture Comments NOT INDICATED Urine Creatinine mg/dL Ur Total Protein Timed mg/dL Protein/Creatinin Ratio (<=0.2) /28/24 Range/Units 01:07 WBC 11.2 H (4.8-10.8) x10^3/uL RBC 3.96 L (4.20-5.40) 10^6/uL Hgb 12.4 (12.0-16.0) g/dL Hct 35.7 L (37.0-47.0) % MCV 90.2 (81.0-99.0) fL MCH 31.3 H (27.0-31.0) pg MCHC 34.7 (32.0-36.0) g/dL RDW 13.8 (12.0-15.0) % Plt Count 261 (130-450) 10^3/uL MPV 10.4 (7.9-10.8) fL Neut # (Auto) 7.5 H (1.5-6.6) 10^3/uL Lymph # (Auto) 2.3 (1.5-3.5) 10^3/uL [place] # (Auto) 1.1 H (0.0-1.0) 10^3/uL Eos # (Auto) 0.2 (0.0-0.7) 10^3/uL Baso # (Auto) 0.0 (0.0-0.1) 10^3/uL Absolute Nucleated RBC 0.00 x10^3/uL Nucleated RBC % 0.0 /100WBC Sodium (135-145) mmol/L Potassium (3.5-4.5) mmol/L Chloride (101-111) mmol/L Carbon Dioxide (21-32) mmol/L Anion Gap (6-13) BUN (6-20) mg/dL Creatinine (0.6-1.3) mg/dL Estimated GFR (MDRD) (>89) Glucose (74-104) mg/dL POC Whole Bld Glucose (70 - 100) mg/dL Estimat Average Glucose (70-100) mg/dL Hemoglobin A1c % (4.27-6.07) % Calcium (8.5-10.3) mg/dL Total Bilirubin (0.2-1.0) mg/dL AST (10-42) IU/L ALT (10-60) IU/L Alkaline Phosphatase (42-121) IU/L Troponin I High Sens (2.3-14.8) ng/L B-Natriuretic Peptide (5-100) pg/mL Total Protein (6.4-8.9) g/dL Albumin (3.2-5.5) g/dL Globulin (2.1-4.2) g/dL Albumin/Globulin Ratio (1.0-2.2) Lipase (11-82) U/L Urine Color Urine Clarity (CLEAR) Urine pH (5.0-7.5) PH Ur Specific [place] (1.002-1.030) Urine Protein (NEGATIVE) mg/dL Urine Glucose (UA) (NEGATIVE) mg/dL Urine Ketones (NEGATIVE) mg/dL Urine Occult Blood (NEGATIVE) Urine Nitrite (NEGATIVE) Urine Bilirubin (NEGATIVE) Urine Urobilinogen (NORMAL) E.U./dL Ur Leukocyte Esterase (NEGATIVE) Urine RBC (0-5) /HPF Urine WBC (0-5) /HPF Ur Squamous Epith Cells (<= Few) Urine Bacteria (None Seen) /HPF Urine Culture Comments Urine Creatinine mg/dL Ur Total Protein Timed mg/dL Protein/Creatinin Ratio (<=0.2) Assessment/Plan - Problem List (1) COVID Impression: Mild improvement. Still requiring oxygen. Will give dose of dexamthasone. Symptomatic care with benadryl, saline spray, mucinex. Will keep overnight and continue to supplement oxygen. (2) Elevated blood pressure reading Impression: No significant elevations. Continue home meds. (3) Third trimester Impression: NST each shift. Overall reassuing.
[2024-05-14] MEDS ORDERED: SODIUM CHLORIDE 0.65% NASAL SPRAY NAS PRN (18:35)
[2024-05-14] MEDS ORDERED: diphenhydrAMINE 25 MG CAPSULE PO PRN (18:35)
[2024-05-14] MEDS: SODIUM CHLORIDE FLUSH 0.9% 10 ML SYRINGE IVP SCH (21:40)
[2024-05-15] MEDS: guaiFENesin 600 MG TABLET PO SCH (01:35)
[2024-05-15] MEDS: DEXAMETHASONE 10 MG/ML VIAL IV ONE ×2 (01:47)
[2024-05-15] MEDS: PHENOL THROAT SPRAY 177 ML MM PRN (01:48)
--- NOTE | 2024-05-15 07:30 | PROVIDER PROGRESS NOTE ---
Objective - Vital Signs/Intake & Output Vital Signs: Vital Signs x48h Temp Pulse Pulse Resp BP Pulse Ox 05/15/24 07:11 96 8 L 05/15/24 06:15 98 F 95 22 119/63 95 05/15/24 01:35 98.6 F 87 24 116/62 97 Intake & Output: Intake & Output 05/12/24 05/13/24 05/14/24 05/15/24 23:59 23:59 23:59 23:59 Intake Total 250 Balance 250 - Lab Results Fish Bones: 05/14/24 10:00 05/14/24 10:00 Other Labs: Lab Results x24hrs 05/14/24 05/14/24 05/14/24 Range/Units 14:30 10:37 10:00 WBC (4.8-10.8) x10^3/uL RBC (4.20-5.40) 10^6/uL Hgb (12.0-16.0) g/dL Hct (37.0-47.0) % MCV (81.0-99.0) fL MCH (27.0-31.0) pg MCHC (32.0-36.0) g/dL RDW (12.0-15.0) % Plt Count (130-450) 10^3/uL MPV (7.9-10.8) fL Neut # (Auto) (1.5-6.6) 10^3/uL Lymph # (Auto) (1.5-3.5) 10^3/uL [place] # (Auto) (0.0-1.0) 10^3/uL Eos # (Auto) (0.0-0.7) 10^3/uL Baso # (Auto) (0.0-0.1) 10^3/uL Absolute Nucleated RBC x10^3/uL Nucleated RBC % /100WBC Sodium (135-145) mmol/L Potassium (3.5-4.5) mmol/L Chloride (101-111) mmol/L Carbon Dioxide (21-32) mmol/L Anion Gap (6-13) BUN (6-20) mg/dL Creatinine (0.6-1.3) mg/dL Estimated GFR (MDRD) (>89) Glucose (74-104) mg/dL POC Whole Bld Glucose 88 102 H (70 - 100) mg/dL Estimat Average Glucose 85 (70-100) mg/dL Hemoglobin A1c % 4.6 (4.27-6.07) % Calcium (8.5-10.3) mg/dL Total Bilirubin (0.2-1.0) mg/dL AST (10-42) IU/L ALT (10-60) IU/L Alkaline Phosphatase (42-121) IU/L Total Protein (6.4-8.9) g/dL Albumin (3.2-5.5) g/dL Globulin (2.1-4.2) g/dL Albumin/Globulin Ratio (1.0-2.2) 05/14/24 05/14/24 Range/Units 10:00 10:00 WBC 11.2 H (4.8-10.8) x10^3/uL RBC 3.75 L (4.20-5.40) 10^6/uL Hgb 11.5 L (12.0-16.0) g/dL Hct 34.1 L (37.0-47.0) % MCV 90.9 (81.0-99.0) fL MCH 30.7 (27.0-31.0) pg MCHC 33.7 (32.0-36.0) g/dL RDW 13.8 (12.0-15.0) % Plt Count 238 (130-450) 10^3/uL MPV 10.5 (7.9-10.8) fL Neut # (Auto) 7.3 H (1.5-6.6) 10^3/uL Lymph # (Auto) 2.6 (1.5-3.5) 10^3/uL [place] # (Auto) 1.1 H (0.0-1.0) 10^3/uL Eos # (Auto) 0.2 (0.0-0.7) 10^3/uL Baso # (Auto) 0.0 (0.0-0.1) 10^3/uL Absolute Nucleated RBC 0.00 x10^3/uL Nucleated RBC % 0.0 /100WBC Sodium 135 (135-145) mmol/L Potassium 3.4 L (3.5-4.5) mmol/L Chloride 106 (101-111) mmol/L Carbon Dioxide 20 L (21-32) mmol/L Anion Gap 9.0 (6-13) BUN 5 L (6-20) mg/dL Creatinine 0.4 L (0.6-1.3) mg/dL Estimated GFR (MDRD) 184 (>89) Glucose 109 H (74-104) mg/dL POC Whole Bld Glucose (70 - 100) mg/dL Estimat Average Glucose (70-100) mg/dL Hemoglobin A1c % (4.27-6.07) % Calcium 8.9 (8.5-10.3) mg/dL Total Bilirubin 0.3 (0.2-1.0) mg/dL AST 15 (10-42) IU/L ALT 19 (10-60) IU/L Alkaline Phosphatase 118 (42-121) IU/L Total Protein 6.1 L (6.4-8.9) g/dL Albumin 3.0 L (3.2-5.5) g/dL Globulin 3.1 (2.1-4.2) g/dL Albumin/Globulin Ratio 1.0 (1.0-2.2)
[2024-05-15] MEDS ORDERED: SODIUM CHLORIDE 0.9% 100ML 100 ML IV ONE (08:45)
[2024-05-15] MEDS ORDERED: ASPIRIN EC 81 MG TABLET PO SCH (09:00)
[2024-05-15] MEDS: REMDESIVIR 100 MG in SODIUM CHLORIDE 0.9% 100ML 100 ML IV SCH (09:42)
[2024-05-15 13:11] VITALS: O2SAT 98
[2024-05-15 17:20] VITALS: BP 144/88
--- NOTE | 2024-05-15 21:39 | DISCHARGE SUMMARY ---
Discharge Summary Admit Date: 05/14/24 Discharge Date: 05/15/24 Discharging Provider: Stephon Talbot MD Code Status: Attempt Resuscitation Condition at Discharge: Stable Discharge Disposition: 01 Home, Self Care - DIAGNOSES Admission Diagnoses: COVID 19 infection Respiratory distress 35 weeks gestation Discharge Diagnoses with Status of Each Condition: Covid 19 infection Respiratory distress: Improved 35 weeks gestation - HPI History of Present Illness: No acute events. Patient did well overnight. Intermittent oxygen use. Cough, sore throat improved. Feels like her chest is clearing up. - HOSPITAL COURSE Hospital Course: Patient was admitted at 35 weeks gestation with Covid 19 infection and intermittently elevated blood pressures. She is taking antihypertensive medication and while in the ED, she had severe-ranged blood pressures which subsequently normalized without intervention. She had not taken her antihypertensives previous to the visit. She had intermittent desaturations below 92%, and was monitored for two days. After treatment, her saturations no rmalized and she felt better. On day two, she did not require oxygen and had normal O2 saturations. As she was feeling better and was able to sustain her oxygen levels while awake and asleep, she was discharged with symptomatic treatment and follow up in clinic. Return precautions given. Discusses labor, decreased movement, and breathing issues. - ALLERGIES Allergies/Adverse Reactions: Allergies Allergy/AdvReac Type Severity Reaction Status Date / Time latex Allergy Rash Verified 05/13/24 22:50 nickel Allergy Rash Verified 05/13/24 22:50 - MEDICATIONS Home Medications: Ambulatory Orders Medication Instructions Recorded Confirmed Labetalol [Trandate] 100 mg PO BID 05/13/24 05/14/24 Aspirin [Aspirin EC] 1 tab PO DAILY 05/14/24 05/14/24 Pnv 119/Iron Fum/Folic Acid 1 tab PO DAILY 05/14/24 05/14/24 [ 19 Tablet] - PHYSICAL EXAM AT DISCHARGE General Appearance: positive: No acute distress, Alert Eyes Bilateral: positive: Normal inspection Respiratory: positive: Chest non-tender, No respiratory distress, Breath sounds nml Cardiovascular: positive: Regular rate & rhythm, No murmur Abdomen: positive: Non-tender, No distention. negative: Guarding Neurologic/Psychiatric: positive: Oriented x3, Mood/affect nml - LABS Result Diagrams: 05/14/24 10:00 05/14/24 10:00 - FOLLOW UP Follow Up: [facility] in [facility] - TIME SPENT Time Spent in Discharge (Minutes): 30
== END 2024-05-15 18:44 | disposition home or self-care (01) ==
LOC: ED 22:37 → FBP 05-14 04:25
PROVIDERS: ADMIT Obstetrics & Gynecology; ATTEND Obstetrics & Gynecology
DX: O98.513 Other viral diseases complicating pregnancy, third trimester (principal); U07.1 COVID-19; O10.913 Unspecified pre-existing hypertension complicating pregnancy, third trimester; O99.343 Other mental disorders complicating pregnancy, third trimester; F41.9 Anxiety disorder, unspecified; O36.8330 Maternal care for abnormalities of the fetal heart rate or rhythm, third trimester, not applicable or unspecified; O26.893 Other specified pregnancy related conditions, third trimester; R06.03 Acute respiratory distress; O99.213 Obesity complicating pregnancy, third trimester; E66.01 Morbid (severe) obesity due to excess calories; Z3A.35 35 weeks gestation of pregnancy; Z79.899 Other long term (current) drug therapy
CPT/HCPCS: 36415; 71045; 80053; 81001; 82570; 83036; 83690; 83880; 84156; 84484; 85025; 87797; 93005; 94640; 96365; 96372; 96376; 99285; A9270; G0378; J1650; 87086

== ENCOUNTER 2024-05-18 18:30 | Outpatient (CLI) | payer BC ==
[2024-05-18 18:53] VITALS: BP 140/92
[2024-05-18] MEDS: LABETALOL 100 MG TABLET PO SCH (20:24)
[2024-05-18 20:40] LABS: BASOPHILS % (AUTO) 0.3 %; EOSINOPHILS # (AUTO) 0.3 10^3/uL (0.0-0.7); EOSINOPHILS % (AUTO) 1.8 %; HCT - HEMATOCRIT 41.4 % (37.0-47.0); HGB - HEMOGLOBIN 13.9 g/dL (12.0-16.0); LYMPHOCYTES # (AUTO) 3.2 10^3/uL (1.5-3.5); LYMPHOCYTES % (AUTO) 22.2 %; MEAN CORPUSCULAR HEMOGLOBIN 30.2 pg (27.0-31.0); MEAN CORPUSCULAR HGB CONC 33.6 g/dL (32.0-36.0); MEAN PLATELET VOLUME 10.5 fL (7.9-10.8); MONOCYTES # (AUTO) 1.1 10^3/uL (0.0-1.0); MONOCYTES % (AUTO) 7.4 %; NEUTROPHILS # (AUTO) 9.6 10^3/uL (1.5-6.6); NEUTROPHILS % (AUTO) 67.1 %; PLT - PLATELET COUNT 370 10^3/uL (130-450); RED CELL DISTRIBUTION WIDTH 13.2 % (12.0-15.0); WHITE BLOOD COUNT 14.2 x10^3/uL (4.8-10.8)
[2024-05-18 20:51] LABS: ALBUMIN 3.3 g/dL (3.2-5.5); ALBUMIN/GLOBULIN RATIO 0.9 (1.0-2.2); BILIRUBIN,TOTAL 0.4 mg/dL (0.2-1.0); CALCIUM 9.1 mg/dL (8.5-10.3); CREATININE 0.5 mg/dL (0.6-1.3); POTASSIUM 3.7 mmol/L (3.5-4.5); TOTAL PROTEIN 6.9 g/dL (6.4-8.9)
--- NOTE | 2024-05-18 21:57 | PROVIDER PROGRESS NOTE ---
- HPI Chief Complaint: Other (covid, htn on labetolol, obesity) Current : here for routine NST for htn, obesity, and now covid. on labetolol 100 mg bid. sleeping alot last few days. tired. but otherwise feeling ok. baby not moving as well as usual either. no headache. Vital Signs Temperature 98.4 F 05/18/24 18:41 Heart Rate 90 05/18/24 18:41 Respiratory Rate 20 05/18/24 18:41 Blood Pressure 140/92 H 05/18/24 18:41 O@ sats in high 90s. coughing some Bp better after labetolol. - Procedures OB Procedure Performed: NST Diagnosis/Indication for NST: Other (covid, decreased movement.) NST Procedure: NST Procedure Start Time 13:06 Stop Time 14:10 Service Date of procedure: 05/18/24 Procedure Details: non -Reactive for of 32 weeks gestation or more. NST tracing contains one heart rate accelerations that are at least 15 beats per minute above the baseline rate and lasting at least 15 seconds from onset to return to baseline within a twenty minute period. There was not a second one in spite of extended monitoring and acoustic stim. there were 10 x 10 acels. moderate variablity. lots of contractions and no decels. BPP was done and 6/10 for 2 off for breathing. Findings: labs normal. bp better wtih labetolol dose. will increase to tid. NST reassuring but not reactive. BPP 6/10 - Plan Plan: discharge home to sleep there. return to [facility] tomorrow to reassess baby and blood pressures. increase labetolol to tid.
--- NOTE | 2024-05-18 23:04 | Ultrasound Report ---
PROCEDURE: OB Biophysical Profile INDICATIONS: FHR; no accels in past hour OUTSIDE/PRIOR DATING DATA: Last menstrual period (LMP): 09/07/2023. LMP-based estimated date of delivery (SOTO): 06/13/2024. First dating scan (date and location): 11/05/2023. Estimated date of delivery (SOTO) from first dating scan: 06/12/2024. The below data below was generated using the sonographic SOTO of 06/12/2024 TECHNIQUE: Real-time scanning was performed of the fetus, with image documentation and biometric marty surements. Biophysical profile was also obtained. Endovaginal scanning: Not performed COMPARISON: 12/10/2023 FINDINGS: General: A single living intrauterine gestation is present. Presentation: Vertex Placenta: Placental position is anterior, without previa. Amniotic fluid index: 13.6 cm, normal for gestational age. Deepest pocket is 7.6 cm heart rate: 144 beats per minute. Maternal cervical canal: Not seen Incidental note of single nuchal cord. Complex left ovarian cyst redemonstrated. Biophysical profile: Tone: 2 points. Movement: 2 points. Respiration: 0 points. Largest pocket of fluid: 2 points. IMPRESSION: Living intrauterine in vertex presentation. Abnormal biophysical profile, 02/22, with lack of practice respirations. Preliminary results given by the mercantile agent to the patient's nurse immediately following the study. Reviewed by: Monika Thomas MD on 05/18/2024 11:02 PM PDT Approved by: Monika Thomas MD on 05/18/2024 11:02 PM PDT Station ID: [id number]
== END 2024-05-18 22:08 | disposition home or self-care (01) ==
LOC: WFO 18:30 → FBP 18:34 → WFO 22:08
PROVIDERS: ATTEND Obstetrics & Gynecology
DX: O16.3 Unspecified maternal hypertension, third trimester (principal); O99.213 Obesity complicating pregnancy, third trimester; O98.513 Other viral diseases complicating pregnancy, third trimester; Z3A.00 Weeks of gestation of pregnancy not specified; U07.1 COVID-19; O36.8130 Decreased fetal movements, third trimester, not applicable or unspecified; O28.4 Abnormal radiological finding on antenatal screening of mother
CPT/HCPCS: 36415; 59025; 76819; 80053; 85025; 99215; A9270

== ENCOUNTER 2024-05-19 11:05 | Outpatient (CLI) | payer BC ==
[2024-05-19 11:52] VITALS: BP 139/94; O2SAT 95
--- NOTE | 2024-05-19 13:35 | PROCEDURE REPORT ---
- HPI Diagnosis/Indication for NST: Other (Covid, obesity, htn) Vital Signs Temperature 98.4 F 05/19/24 11:17 Heart Rate 84 05/19/24 11:17 Respiratory Rate 20 05/19/24 11:17 Blood Pressure 139/94 H 05/19/24 11:17 O2 Saturation 95 05/19/24 11:17 If not protocol: Oxygen Flow, liters/minute 0 05/19/24 11:17 Temperature 98.4 F 05/19/24 11:17 Heart Rate 84 05/19/24 11:17 Respiratory Rate 20 05/19/24 11:17 Blood Pressure 139/94 H 05/19/24 11:17 O2 Saturation 95 05/19/24 11:17 If not protocol: Oxygen Flow, liters/minute 0 05/19/24 11:17 - NST Procedure NST Procedure Start Time 18:40 Stop Time 21:10 - Results and Plan Findings/Impression: non-Reactive for of 32 weeks gestation or more. NST tracing does not contain at least two heart rate accelerations that are at least 15 beats per minute above the baseline rate and lasting at least 15 seconds from onset to return to baseline within a twenty minute period. It is reassuring but not reactive. moderate variability. BPP is ordered and done, 04/24. Plan: discharge home. f/u Sunday for next NST.
--- NOTE | 2024-05-21 17:09 | Ultrasound Report ---
PROCEDURE: OB Biophysical Profile INDICATIONS: nonreactive NST The below data below was generated using the SOTO of 06/12/2024 TECHNIQUE: Real-time scanning was performed of the fetus, with image documentation and biometric marty surements. Biophysical profile was also obtained. Endovaginal scanning: No COMPARISON: None. FINDINGS: General: A single living intrauterine gestation is present. Presentation: Vertex Placenta: Placental position is anterior, without previa. Amniotic fluid index: 15.6 cm, 62% for gestational age. heart rate: 141 beats per minute. Maternal cervical canal: 4.2 cm long; normal length is 2.5 cm or more. Estimated gestational age from initial scan: 36 week 4 day Biophysical profile: Tone: 2 points. Movement: 2 points. Respiration: 2 points. Largest pocket of fluid: 2 points. Nuchal cord noted. Complex ovarian cyst. IMPRESSION: Single live intrauterine 36 week 4 day gestation. Biophysical profile score 8 out of 8 Nuchal cord Reviewed by: Williams Durán MD on 05/21/2024 4:08 PM [email or web address] Approved by: Williams Durán MD on 05/21/2024 4:08 PM AKJOSE Station ID: [id number]
== END 2024-05-19 14:26 | disposition home or self-care (01) ==
LOC: WFO 11:05 → FBP 11:06 → WFO 14:26
PROVIDERS: ATTEND Obstetrics & Gynecology
DX: O16.3 Unspecified maternal hypertension, third trimester (principal); O98.513 Other viral diseases complicating pregnancy, third trimester; U07.1 COVID-19; Z3A.36 36 weeks gestation of pregnancy; O99.213 Obesity complicating pregnancy, third trimester
CPT/HCPCS: 59025; 99215

== ENCOUNTER 2024-05-21 08:54 | Outpatient (CLI) | payer BC ==
[2024-05-21 10:36] LABS: BASOPHILS % (AUTO) 0.3 %; EOSINOPHILS # (AUTO) 0.2 10^3/uL (0.0-0.7); EOSINOPHILS % (AUTO) 1.7 %; HCT - HEMATOCRIT 38.4 % (37.0-47.0); HGB - HEMOGLOBIN 13.1 g/dL (12.0-16.0); LYMPHOCYTES % (AUTO) 22.4 %; MEAN CORPUSCULAR HEMOGLOBIN 30.3 pg (27.0-31.0); MEAN CORPUSCULAR HGB CONC 34.1 g/dL (32.0-36.0); MEAN CORPUSCULAR VOLUME 88.7 fL (81.0-99.0); MEAN PLATELET VOLUME 9.9 fL (7.9-10.8); MONOCYTES # (AUTO) 1.1 10^3/uL (0.0-1.0); MONOCYTES % (AUTO) 8.1 %; NEUTROPHILS # (AUTO) 8.8 10^3/uL (1.5-6.6); PLT - PLATELET COUNT 356 10^3/uL (130-450); RED BLOOD COUNT 4.33 10^6/uL (4.20-5.40); RED CELL DISTRIBUTION WIDTH 13.1 % (12.0-15.0); WHITE BLOOD COUNT 13.3 x10^3/uL (4.8-10.8)
[2024-05-21 10:48] LABS: ALBUMIN 3.4 g/dL (3.2-5.5); BILIRUBIN,TOTAL 0.4 mg/dL (0.2-1.0); CALCIUM 9.1 mg/dL (8.5-10.3); CREATININE 0.5 mg/dL (0.6-1.3); TOTAL PROTEIN 6.9 g/dL (6.4-8.9)
[2024-05-21 12:10] LABS: BILIRUBIN,URINE NEGATIVE (NEGATIVE); GLUCOSE, URINE (UA) NEGATIVE (NEGATIVE); KETONES,URINE (UA) NEGATIVE (NEGATIVE); LEUKOCYTE ESTERASE, URINE NEGATIVE (NEGATIVE); NITRITE,URINE NEGATIVE (NEGATIVE); OCCULT BLOOD,URINE NEGATIVE (NEGATIVE); PROTEIN,URINE 30 mg/dL (NEGATIVE); UROBILINOGEN,URINE 0.2 (NORMAL) E.U./dL (NORMAL)
[2024-05-21 12:11] LABS: CLARITY,URINE HAZY (CLEAR)
[2024-05-21 12:14] LABS: BACTERIA,URINE Moderate /HPF (None Seen); MUCUS,URINE Few Strands; RBC,URINE 0-5 /HPF (0-5); SQUAMOUS EPITHELIAL CELL,UR FEW Squamous (<= Few)
[2024-05-21 12:16] VITALS: BP 135/89
[2024-05-21 12:21] LABS: CREATININE,URINE 124.5 mg/dL; PROTEIN/CREATININE RATIO,URINE 0.3 (<=0.2)
--- NOTE | 2024-05-22 11:05 | PROVIDER PROGRESS NOTE ---
- HPI Current : Current [facility] 06/13/24 Gestation 36 Weeks and 5 Days 2 Para 0 Vital Signs Temperature 97.3 F L 05/21/24 09:09 Heart Rate 84 05/21/24 09:09 Respiratory Rate 18 05/21/24 09:09 Blood Pressure 157/94 H 05/21/24 09:09 Temperature 97.3 F L 05/21/24 12:15 Heart Rate 84 05/21/24 12:15 Respiratory Rate 18 05/21/24 12:15 Blood Pressure 135/89 H 05/21/24 12:15 O2 Saturation If not protocol: Oxygen Flow, liters/minute - Procedures NST Procedure: NST Procedure Start Date 05/21/24 Start Time 09:30 Stop Time 09:55 Vibroacoustic Stimulation Used No Patient States Movement Yes Findings: Reactive, Cat 1 Grill initially with q10 min contractions, spaced out with hydration. - Plan Plan: 34 yo at 36w5d who present today for cramping. She reports cramping started last evening, was able to use a hot water bottle and go to sleep. Cramping again today. [place] like she needed to come in and be checked. Reports cramping is constant in nature, does not come and go. She does feel intermittent tightening as well. Denies constipation, dysuria. Certain does not feel like a UTI. No AZUL, vision changes. She took her labetalol this AM just recently, around 0845. O: VS reviewed, initial BP 157/94, remaining 130s/89-91 Gen: NAD Chest: non labored respirations Abd: gravid, non tender, no rebound/guarding Ext: trace LE edema SVE: very posterior, difficult to to reach, external os may be 1cm Labs reviewed: CBC, CMP (UA, pr:cr ratio pending on discharge) A/P: 34 yo at 36w5d: - Pelvic cramping - cHTN on labetalol - Class 3 obesity - Left ovarian cyst - No evidence of labor, declined repeat SVE. Comfortable with discharge home. - Preeclampsia labs obtained given first elevated BP, suspect elevated as she had just recently taken her AM labetalol. Asymptomatic for preeclampsia. CBC/CMP without evidence of preeclampsia however pr:cr ratio pending on discharge. - UA pending on discharge, low suspicion for UTI She will follow up with scheduled OB visit this afternoon, can review urine results at that time. Labor/preeclampsia precautions reviewed. Javy Schumacher MD
== END 2024-05-21 12:15 | disposition home or self-care (01) ==
LOC: WFO 08:54 → FBP 08:55 → WFO 12:15
PROVIDERS: ATTEND Obstetrics & Gynecology
DX: O99.891 Other specified diseases and conditions complicating pregnancy (principal); R10.2 Pelvic and perineal pain; O16.3 Unspecified maternal hypertension, third trimester; O99.213 Obesity complicating pregnancy, third trimester; E66.01 Morbid (severe) obesity due to excess calories; Z3A.36 36 weeks gestation of pregnancy; O34.83 Maternal care for other abnormalities of pelvic organs, third trimester; N83.202 Unspecified ovarian cyst, left side
CPT/HCPCS: 36415; 59025; 80053; 81001; 81003; 82570; 84156; 85025; 87086; 99215

== ENCOUNTER 2024-05-24 14:03 | Outpatient (CLI) | payer BC ==
--- NOTE | 2024-05-24 14:36 | PROVIDER PROGRESS NOTE ---
- HPI Current : Vital Signs Temperature 97.9 F 05/24/24 14:34 Heart Rate 76 05/24/24 14:34 Respiratory Rate 17 05/24/24 14:34 Blood Pressure 129/78 05/24/24 14:34 Temperature 97.9 F 05/24/24 14:34 Heart Rate 76 05/24/24 14:34 Respiratory Rate 17 05/24/24 14:34 Blood Pressure 129/78 05/24/24 14:34 O2 Saturation If not protocol: Oxygen Flow, liters/minute - Procedures NST Procedure: NST Procedure Start Time 09:30 Stop Time 09:55 Service Date of procedure: 05/24/24 (Read 05/24/24) Procedure Details: Patient is a 34-year-old G2, P0 at 37 weeks 1 day gestation presents today to discuss delaying induction. She feels like her previous changes were due to COVID and would like reevaluation. She is not ready for induction tomorrow. As she is feeling the best she has in months, she would like to delay until next week. Physical Exam Constitutional: alert, no acute distress, well hydrated, well developed, well nourished, appropriate dress. Respiratory: no respiratory distress. Abdomen: nondistended, nontender, no guarding. Psych: affect and mood appropriate, normal interaction, good eye contact. FHT: 135 beats per baseline, moderate variability, accelerations present, no decelerations. Reactive NST. [place]: Quiescent 34-year-old G2, P0 at 37 weeks gestation with chronic hypertension Chronic hypertension -Discussed reassuring urine today. Has not had lab abnormalities otherwise. May have been related to COVID infection. -Discussed rationale of delivery between 37 and 39 weeks for chronic hypertension. Currently blood pressure is much better controlled after increasing her labetalol. -Discussed possibly waiting until next week which patient would greatly prefer. Discussed warning signs if symptoms worsen. Is checking her blood pressure at home. -She did not do a 3-hour glucose test, but did do profiling during her hospitalization. While that was reassuring, does not completely alleviate concern. -Does have appoint with [facility] in 2 days and will likely get growth scan there. If not done, will perform this week. -Discharged with labor and preeclampsia precautions.
[2024-05-24 14:38] LABS: BILIRUBIN,URINE NEGATIVE (NEGATIVE); GLUCOSE, URINE (UA) NEGATIVE (NEGATIVE); KETONES,URINE (UA) NEGATIVE (NEGATIVE); LEUKOCYTE ESTERASE, URINE NEGATIVE (NEGATIVE); NITRITE,URINE NEGATIVE (NEGATIVE); OCCULT BLOOD,URINE NEGATIVE (NEGATIVE); PH,URINE 6.5 PH (5.0-7.5); PROTEIN,URINE NEGATIVE (NEGATIVE); UROBILINOGEN,URINE 0.2 (NORMAL) E.U./dL (NORMAL)
[2024-05-24 14:41] VITALS: BP 129/78
[2024-05-24 14:51] LABS: CLARITY,URINE CLEAR (CLEAR)
[2024-05-24 15:28] LABS: CREATININE,URINE 32.5 mg/dL; TOTAL PROTEIN,URINE TIMED < 4 mg/dL
== END 2024-05-24 14:50 | disposition home or self-care (01) ==
LOC: WFO 14:03 → FBP 14:04 → WFO 14:50
PROVIDERS: ATTEND Obstetrics & Gynecology
DX: O16.3 Unspecified maternal hypertension, third trimester (principal); Z3A.37 37 weeks gestation of pregnancy; Z86.16 Personal history of COVID-19
CPT/HCPCS: 59025; 81001; 81003; 82570; 84156; 87086; 99213; 99214

== ENCOUNTER 2024-06-01 16:36 | Inpatient (IN) | payer BC ==
[2024-06-01] MEDS ORDERED: CALCIUM CARBONATE CHEW 500 MG TABLET PO PRN (17:03)
[2024-06-01] MEDS ORDERED: IBUPROFEN 600 MG TABLET PO PRN (17:03)
[2024-06-01] MEDS ORDERED: NIFEdipine 10 MG CAPSULE PO PRN (17:03)
[2024-06-01] MEDS ORDERED: SODIUM CHLORIDE FLUSH 0.9% 10 ML SYRINGE IVP PRN (17:03)
[2024-06-01] MEDS ORDERED: CARBOPROST TROMETHAMINE 250 MCG/ML VIAL IM PRN (17:03)
[2024-06-01] MEDS ORDERED: lidocaine 1% 20 ML MDV ID PRN (17:03)
[2024-06-01] MEDS ORDERED: diphenhydrAMINE INJ 50 MG/ML VIAL IVP PRN (17:03)
[2024-06-01] MEDS ORDERED: LABETALOL 20 MG/4 ML SYRINGE IVP PRN ×3 (17:03)
[2024-06-01] MEDS ORDERED: TERBUTALINE 1 MG/ML VIAL SUBQ PRN (17:03)
[2024-06-01] MEDS ORDERED: ONDANSETRON 4 MG/2 ML VIAL IVP PRN (17:03)
[2024-06-01] MEDS ORDERED: hydrALAZINE INJ 20 MG/ML VIAL IVP PRN (17:03)
[2024-06-01] MEDS ORDERED: OXYTOCIN 10 UNIT/ML VIAL IM PRN (17:03)
[2024-06-01] MEDS ORDERED: METOCLOPRAMIDE 10 MG/2 ML VIAL IVP PRN (17:03)
[2024-06-01] MEDS ORDERED: ACETAMINOPHEN 500 MG TABLET PO PRN (17:03)
[2024-06-01] MEDS ORDERED: METHYLERGONOVINE 0.2 MG/ML VIAL IM PRN (17:03)
[2024-06-01] MEDS ORDERED: miSOPROStoL 200 MCG TABLET BC PRN (17:03)
[2024-06-01 17:33] LABS: BASOPHILS # (AUTO) 0.1 10^3/uL (0.0-0.1); BASOPHILS % (AUTO) 0.3 %; EOSINOPHILS # (AUTO) 0.1 10^3/uL (0.0-0.7); EOSINOPHILS % (AUTO) 0.4 %; HCT - HEMATOCRIT 39.3 % (37.0-47.0); HGB - HEMOGLOBIN 13.4 g/dL (12.0-16.0); LYMPHOCYTES # (AUTO) 2.4 10^3/uL (1.5-3.5); MEAN CORPUSCULAR HEMOGLOBIN 30.5 pg (27.0-31.0); MEAN CORPUSCULAR HGB CONC 34.1 g/dL (32.0-36.0); MEAN CORPUSCULAR VOLUME 89.5 fL (81.0-99.0); MONOCYTES # (AUTO) 1.1 10^3/uL (0.0-1.0); MONOCYTES % (AUTO) 6.4 %; NEUTROPHILS # (AUTO) 13.3 10^3/uL (1.5-6.6); NEUTROPHILS % (AUTO) 78.4 %; PLT - PLATELET COUNT 319 10^3/uL (130-450); RED BLOOD COUNT 4.39 10^6/uL (4.20-5.40); RED CELL DISTRIBUTION WIDTH 13.2 % (12.0-15.0); WHITE BLOOD COUNT 16.9 x10^3/uL (4.8-10.8)
[2024-06-01 17:48] LABS: ALBUMIN 3.5 g/dL (3.2-5.5); BILIRUBIN,TOTAL 0.4 mg/dL (0.2-1.0); CALCIUM 9.5 mg/dL (8.5-10.3); CREATININE 0.5 mg/dL (0.6-1.3); POTASSIUM 3.9 mmol/L (3.5-4.5); TOTAL PROTEIN 7.1 g/dL (6.4-8.9)
[2024-06-01] MEDS ORDERED: SODIUM CHLORIDE FLUSH 0.9% 10 ML SYRINGE IVP SCH (18:00)
--- NOTE | 2024-06-01 18:47 | HISTORY & PHYSICAL EXAMINATION ---
Admit History - Visit Reason Visit Reason: Contractions (here for labor at term. contractions since 4 am.) - : 2 Parity: 0 Premature: 0 Ectopic: 0 : 1 Care: positive: [facility] Complications This : positive: Chronic HTN (on labetolol 200 mg bid), Other (asthma - mild, covid 3 weeks ago, obesity. 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 desires no epidural. ready to get in tub. no preE symptoms. some nausea with pain of contractions but no vomiting. no significant swelling - HPI Diagnosis/Indication for NST: Other (hypertension) Current EDU 06/13/24 Gestation 38 Weeks and 2 Days 2 Vital Signs Temperature 98.4 F 06/01/24 17:11 Heart Rate 81 06/01/24 17:11 Respiratory Rate 19 06/01/24 17:11 Blood Pressure 135/84 H 06/01/24 17:11 Temperature 98.4 F 06/01/24 17:20 Heart Rate 81 06/01/24 17:11 Respiratory Rate 19 06/01/24 17:11 Blood Pressure 135/84 H 06/01/24 17:11 O2 Saturation If not protocol: Oxygen Flow, liters/minute - NST Procedure NST Procedure Start Time 14:22 Stop Time 14:55 Reactive for of 32 weeks gestation or more. FHT does not have 15 x 15 acels and rarely does. no decels. so is a negative contraction stress test with her natural contractions. - Results and Plan Findings/Impression: not reactive but reassuring FHT. continue to monitor. Plan: labor can continue Meds/Allgy - Home Medications Home Medications: Ambulatory Orders Medication Instructions Recorded Confirmed Labetalol [Trandate] 100 mg PO BID 05/13/24 06/01/24 Aspirin [Aspirin EC] 1 tab PO DAILY 05/14/24 06/01/24 Pnv 119/Iron Fum/Folic Acid 1 tab PO DAILY 05/14/24 06/01/24 [ 19 Tablet] Omeprazole 20 mg PO PRN PRN 06/01/24 06/01/24 - Allergies Allergies/Adverse Reactions: Allergies Allergy/AdvReac Type Severity Reaction Status Date / Time latex Allergy Rash Verified 05/13/24 22:50 nickel Allergy Rash Verified 05/13/24 22:50 Review of Systems - Constitutional Constitutional: reports: Fatigue - Other Findings Other Findings: mild cough, residual covid. no AZUL. some nausea with contraction pain. good movement. Physical - Abdominal Exam Vital Signs: Temp Pulse Resp BP Pulse Ox O2 Flow Rate 98.4 F 81 19 135/84 H 06/01/24 17:20 06/01/24 17:11 06/01/24 17:11 06/01/24 17:11 Contraction Frequency (min/apart): q5 Contraction Intensity: positive: Moderate Uterine Resting Tone: positive: Soft - Monitoring Strip Review: positive: Category I - Presentation Presentation: positive: Vertex - Vaginal Exam Membranes: positive: Membranes intact Dilation (in cm): 7 Effacement (%): 100 Station: positive: -1 Cervical Position: positive: Midposition - Speculum Exam Speculum Exam Performed: positive: No Plan for Labor - Plan For Labor I expect patient to be DC'd or transferred within 96 hours.: Yes Plan for Labor: Admit for spontaneous labor. GBS neg. anticipate later tonight. monitor continously. will treat bp as needed. will continue labetolol. labs normal.
[2024-06-01] MEDS: LABETALOL 100 MG TABLET PO SCH (21:17)
[2024-06-01] MEDS: fentaNYL 100 MCG/2 ML VIAL IVP PRN (21:45)
--- NOTE | 2024-06-02 03:40 | PROVIDER PROGRESS NOTE ---
Labor Progress Note - Uterine Monitoring Uterine Monitoring Mode: positive: External toco Contraction Frequency (min/apart): 5 Contraction Intensity: positive: Mild to moderate Uterine Resting Tone: positive: Soft - Monitoring Monitor Mode: positive: External ultrasound Heart Rate Variability: positive: Moderate (6-25 bmp) Accelerations: positive: Present, 15x15 Decelerations: positive: None Strip Review: positive: Category I - Vaginal Exam Dilation (in cm): per rn 5 - Labor Progress Note Labor Progress Note/Additional Text: had not changed her cervix since she got here. just got second dose of fentanyl. was using nitrous. Her dad and aunt are present along with her partner. her aunt is an L&D RN that now does education for [employer] and is no longer a bedside RN. her dad notes she has a lot of stamina. I discussed with patient my concern that she would get exhausted and offered AROM, Pitocin, epidural but she decided she wanted another dose of fentanyl and rest for a while and reassess in am.
[2024-06-02] MEDS: LACTATED RINGERS 1,000 ML IV PRN (08:01)
[2024-06-02] MEDS ORDERED: ROPIVACAINE 0.2% 200 MG/100 ML BAG EP ONE (08:09)
[2024-06-02] MEDS ORDERED: LIDOCAINE 2%-EPI 1:100000 20 ML MDV ONE (08:10)
[2024-06-02] MEDS ORDERED: diphenhydrAMINE INJ 50 MG/ML VIAL IVP PRN (08:50)
[2024-06-02] MEDS ORDERED: NALBUPHINE 10 MG/ML AMP IVP PRN (08:50)
[2024-06-02] MEDS ORDERED: METOCLOPRAMIDE 10 MG/2 ML VIAL IVP PRN (08:50)
[2024-06-02] MEDS ORDERED: NALOXONE 0.4 MG/ML VIAL IVP PRN (08:50)
[2024-06-02] MEDS ORDERED: ONDANSETRON 4 MG/2 ML VIAL IVP PRN (08:50)
[2024-06-02] MEDS ORDERED: ePHEDrine 50 MG/ML VIAL IVP PRN (08:50)
--- NOTE | 2024-06-02 08:54 | ANESTHESIA ---
Pre-Anesthesia VS, & Labs - Diagnosis term labor, IUP - Procedure labor epidural for Vital Signs: Temp Pulse Resp BP Pulse Ox O2 Flow Rate 36.9 C 81 19 135/84 H 06/01/24 17:20 06/01/24 17:11 06/01/24 17:11 06/01/24 17:11 Height: 5 ft 9 in Weight (kg): 112.491 kg Body Mass Index: 36.6 BMI Classification: Obese - NPO Last Fluid Intake: t/o morning Last Food Intake: breakfast - Is Patient ?: Yes - Lab Results Current Lab Results: Laboratory Tests 06/01/24 17:20: Sodium 134 L, Potassium 3.9, Chloride 106, Carbon Dioxide 19 L, Anion Gap 9.0, BUN 9, Creatinine 0.5 L, Estimated GFR (MDRD) 142, Glucose 85, Calcium 9.5, Total Bilirubin 0.4, AST 14, ALT 16, Alkaline Phosphatase 136 H, Total Protein 7.1, Albumin 3.5, Globulin 3.6, Albumin/Globulin Ratio 1.0 06/01/24 17:20: WBC 16.9 H, RBC 4.39, Hgb 13.4, Hct 39.3, MCV 89.5, MCH 30.5, MCHC 34.1, RDW 13.2, Plt Count 319, MPV 11.0 H, Neut # (Auto) 13.3 H, Lymph # (Auto) 2.4, [place] # (Auto) 1.1 H, Eos # (Auto) 0.1, Baso # (Auto) 0.1, Absolute Nucleated RBC 0.00, Nucleated RBC % 0.0 06/01/24 17:20: Blood Type O POSITIVE, Antibody Screen NEGATIVE Lab results reviewed: Yes Fish Bones: 06/01/24 17:20 06/01/24 17:20 Home Medications and Allergies Home Medications: Ambulatory Orders Omeprazole 20 mg PO PRN PRN 06/01/24 Active Medications Acetaminophen (Acetaminophen 500 Mg Tablet) 1,000 mg PO Q8H PRN PRN Reason: Mild Pain or Fever>38C(100.4F) Calcium Carbonate/Glycine (Calcium Carbonate Chew 500 Mg Tablet) 1,000 mg PO Q6HR PRN PRN Reason: Heartburn Carboprost Tromethamine (Carboprost Tromethamine 250 Mcg/Ml Vial) 250 mcg IM .ONCE PRN PRN Reason: Hemorrhage Diphenhydramine HCl (Diphenhydramine Inj 50 Mg/Ml Vial) 25 mg IVP Q6H PRN PRN Reason: Allergy Symptoms Hydralazine HCl (Hydralazine Inj 20 Mg/Ml Vial) 5 - 10 mg IVP Q20M PRN; Pr otocol PRN Reason: SBP> or= 160 OR DBP> or= 110 Hydralazine HCl (Hydralazine Inj 20 Mg/Ml Vial) 10 mg IVP .ONCE PRN; Protocol PRN Reason: SBP> or= 160 OR DBP> or= 110 Lactated Ringer's (Lr) 500 mls @ 999 mls/hr IV PRN PRN PRN Reason: Abdominal Pain Oxytocin/Sodium Chloride (Pitocin/Sodium Chloride) 500 mls @ 999 mls/hr IV PRN PRN; Protocol PRN Reason: POST- HEMORR PREVENTION Tranexamic Acid (Tranexamic 1,000 Mg/100ml-Nacl) 1,000 mg in 100 mls @ 600 mls/hr IV Q30M PRN PRN Reason: EBL >1200mL and within 3hr Ibuprofen (Ibuprofen 600 Mg Tablet) 600 mg PO Q8HR PRN PRN Reason: Moderate Pain (Level 4-6) Labetalol HCl (Labetalol 20 Mg/4 Ml Syringe) 20 - 80 mg IVP Q10M PRN; Protocol PRN Reason: SBP> or= 160 OR DBP> or= 110 Labetalol HCl (Labetalol 20 Mg/4 Ml Syringe) 20 mg IVP .ONCE PRN; Protocol PRN Reason: SBP> or= 160 OR DBP> or= 110 Labetalol HCl (Labetalol 20 Mg/4 Ml Syringe) 20 - 40 mg IVP Q10M PRN; Protocol PRN Reason: SBP> or= 160 OR DBP> or= 110 Labetalol HCl (Labetalol 100 Mg Tablet) 200 mg PO BID ADAN Last Admin: 06/01/24 21:17 Dose: 200 mg Lidocaine HCl (Lidocaine 1% 20 Ml Mdv) 20 ml ID .ONCE PRN PRN Reason: PERINEAL REPAIR Stop: 06/04/24 17:03 Methylergonovine Maleate (Methylergonovine 0.2 Mg/Ml Vial) 0.2 mg IM .ONCE PRN PRN Reason: Hemorrhage Metoclopramide HCl (Metoclopramide 10 Mg/2 Ml Vial) 5 mg IVP Q6HR PRN PRN Reason: Nausea / Vomiting Misoprostol (Misoprostol 200 Mcg Tablet) 600 mcg BC .ONCE PRN PRN Reason: Hemorrhage Misoprostol (Misoprostol 200 Mcg Tablet) 800 mcg OK .ONCE PRN PRN Reason: Hemorrhage Nifedipine (Nifedipine 10 Mg Capsule) 10 - 20 mg PO Q20M PRN; Protocol PRN Reason: SBP> or= 160 OR DBP> or= 110 Ondansetron HCl (Ondansetron 4 Mg/2 Ml Vial) 4 mg IVP PRN PRN PRN Reason: Nausea / Vomiting Oxytocin (Oxytocin 10 Unit/Ml Vial) 10 unit IM .ONCE PRN PRN Reason: Step One if no IV access. Multivit/Folic Acid/Iron ( Vitamin Tablet) 1 tab PO DAILY ADAN Sodium Chloride (Sodium Chloride Flush 0.9% 10 Ml Syringe) 10 ml IVP PRN PRN PRN Reason: NEEDED PER PROVIDER ORDERS Sodium Chloride (Sodium Chloride Flush 0.9% 10 Ml Syringe) 10 ml IVP Q8H ADAN Terbutaline Sulfate (Terbutaline 1 Mg/Ml Vial) 0.25 mg SUBQ .ONCE PRN PRN Reason: Tachystole Labetalol [Trandate] 100 mg PO BID 05/13/24 Aspirin [Aspirin EC] 1 tab PO DAILY 05/14/24 Pnv 119/Iron Fum/Folic Acid [ 19 Tablet] 1 tab PO DAILY 05/14/24 Omeprazole 20 mg PO PRN PRN 06/01/24 Allergies/Adverse Reactions: Allergies Allergy/AdvReac Type Severity Reaction Status Date / Time latex Allergy Rash Verified 05/13/24 22:50 nickel Allergy Rash Verified 05/13/24 22:50 Anes History & Medical History - Anesthetic History Anesthesia Complications: reports: No previous complications Family history of Anesthesia Complications: Denies Family history of Malignant Hyperthermia: Denies - Medical History Smoking Status: Never smoker - Surgical History Eyes Ears Nose Throat (EENT): reports: Tonsil/Adenoidectomy Orthopedic: reports: Other (forearm fracture as child) - Obstetrical History : 2 Parity: 0 Complications: reports: Chronic HTN (on labetolol 200 mg bid), Other (asthma - mild, covid 3 weeks ago, obesity. 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
--- NOTE | 2024-06-02 11:23 | PHARMACY PROGRESS NOTE ---
- Best Possible Medication History Admit Date and Time: 06/01/24 0895 Processed by: Pharmacy Medications reviewed in ED?: No Medication History completed: Yes Patient Interview: Completed Secondary Source(s): Pharmacy records, Insurance records As the person ultimately responsible for medication therapy, providers are able to order a medication from an existing home medication list in [facility] via the "Reconcile Routine" prior to Confirmation of that medication by patient support specialist. Such practice is discouraged except when the physician, in their clinical judgment, deems that a medical need exists for a medication without regard to previous use.
--- NOTE | 2024-06-02 11:39 | PROVIDER PROGRESS NOTE ---
Labor Progress Note - Uterine Monitoring Uterine Monitoring Mode: positive: External toco Contraction Frequency (min/apart): 10 Contraction Intensity: positive: Mild Uterine Resting Tone: positive: Soft - Monitoring Monitor Mode: positive: External ultrasound Heart Rate Baseline: 140 Heart Rate Variability: positive: Moderate (6-25 bmp) Accelerations: positive: Absent Decelerations: positive: None Strip Review: positive: Category I - Vaginal Exam Dilation (in cm): 8 Effacement (%): 100 Station: 0 Cervical Position: Midposition - Labor Progress Note Labor Progress Note/Additional Text: 34yo at 38.3w in labor - Progressed to 8cm. Contractions spaced after epidural. She would like to do nipple stimulation. Open to AROM and then maybe Pitocin after reassessment this afternoon. - May need augmentation but expect this afternoon
[2024-06-02] MEDS: ROPIVACAINE 0.2% 200 MG/100 ML BAG EP PRN (15:34)
[2024-06-02] MEDS ORDERED: SODIUM CHLORIDE 0.9% 10 ML VIAL IVP ONE (15:48)
[2024-06-02] MEDS: OXYTOCIN/SODIUM CHLORIDE 500 ML IV SCH (16:00)
--- NOTE | 2024-06-02 16:12 | CONSULTATION NOTE ---
Consultation Report: Called for new pain with contractions. Sensory L2. Epidural bolus of 10cc 0.2% ropi. Pump settings returned to 10cc q50 mins with PCEA bolus of 4cc q 10mins if needed. Plan is to start pitocin when patient comfortable with contraction pain.
[2024-06-02] MEDS: OXYTOCIN/SODIUM CHLORIDE 500 ML IV PRN (19:14)
[2024-06-02] MEDS: miSOPROStoL 200 MCG TABLET PR PRN (19:14)
[2024-06-02] MEDS: TRANEXAMIC ACID IN NACL 1,000 MG/100 ML BAG IV PRN (19:16)
[2024-06-02] MEDS ORDERED: WITCH HAZEL/GLYCERIN 1 PAD TOP PRN (19:32)
[2024-06-02] MEDS ORDERED: HYDROCORTISONE 1% CREAM 28 GM TUBE PR PRN (19:32)
--- NOTE | 2024-06-02 19:44 | DELIVERY NOTE ---
Delivery Note - Labor Labor: positive: Augmented by ARM, Augmented by oxytocin - Infant Delivery Method Delivery Method: positive: Spontaneous vaginal delivery - Presentation Presentation: positive: Vertex, JOHN - right occiput anterior - Nuchal Cord Nuchal Cord: positive: Present (x2 nuchal, reduced after delivery) - Anesthetic Anesthetic Type: - Amniotic Fluid Description Amniotic Fluid Description: positive: Moderate meconium - Episiotomy Type Episiotomy Type: positive: None - Laceration Laceration: positive: None - Delivery Outcome Delivery Outcome: positive: Livebirth - [place] : positive: Placed in direct skin contact with mother, Suctioned, Stimulated, Warmed, Gibson used sex: positive: Female - Cord Cord: positive: 3 vessels - Placenta Placenta: positive: Intact, Spontaneous - Estimated Blood Loss Estimated Blood Loss (in cc): 1,500 - Post Delivery Events Post Delivery Events: positive: Hemorrhage - Delivery Comments (Free Text/Narrative) Delivery Comments (Free Text/Narrative): /+2. Pushing with good efforts. Head delivered JOHN. Nuchal cord x2, reduced after body. Shoulders and body delivered with ease. Baby girl placed on mother's abdomen. Delayed cord clamping. Fundus firm. Placenta delivered spontaneously and intact, 3vc. Gush of blood. Uterine bimanual massage. TXA and misoprostol 800mcg rectally given. Clots and uterus cleared, firm now. Bladder emptied and catheter removed. Bleeding decreased. Vagina and perineum inspected- no lacerations. Hemostasis. Bleeding minimal. QBL 1500.
[2024-06-02] MEDS ORDERED: LACTATED RINGERS 1,000 ML IV SCH (20:00)
[2024-06-02] MEDS: DOCUSATE SODIUM 100 MG CAPSULE PO SCH (20:39)
[2024-06-02] MEDS: ACETAMINOPHEN 500 MG TABLET PO SCH (20:39)
[2024-06-02] MEDS: hydrALAZINE INJ 20 MG/ML VIAL IVP PRN (20:41)
[2024-06-02] MEDS: NIFEdipine ER 30 MG TABLET PO SCH (22:01)
[2024-06-02] MEDS: IBUPROFEN 800 MG TABLET PO SCH (23:56)
[2024-06-03 06:07] LABS: BASOPHILS # (AUTO) 0.1 10^3/uL (0.0-0.1); BASOPHILS % (AUTO) 0.3 %; EOSINOPHILS # (AUTO) 0.1 10^3/uL (0.0-0.7); EOSINOPHILS % (AUTO) 0.6 %; HCT - HEMATOCRIT 30.1 % (37.0-47.0); HGB - HEMOGLOBIN 10.3 g/dL (12.0-16.0); LYMPHOCYTES # (AUTO) 3.7 10^3/uL (1.5-3.5); LYMPHOCYTES % (AUTO) 21.9 %; MEAN CORPUSCULAR HEMOGLOBIN 31.2 pg (27.0-31.0); MEAN CORPUSCULAR HGB CONC 34.2 g/dL (32.0-36.0); MEAN CORPUSCULAR VOLUME 91.2 fL (81.0-99.0); MONOCYTES # (AUTO) 1.5 10^3/uL (0.0-1.0); MONOCYTES % (AUTO) 8.6 %; NEUTROPHILS # (AUTO) 11.5 10^3/uL (1.5-6.6); NEUTROPHILS % (AUTO) 68.1 %; PLT - PLATELET COUNT 251 10^3/uL (130-450); RED CELL DISTRIBUTION WIDTH 13.3 % (12.0-15.0); WHITE BLOOD COUNT 16.9 x10^3/uL (4.8-10.8)
[2024-06-03 06:17] LABS: ALBUMIN 2.8 g/dL (3.2-5.5); ALBUMIN/GLOBULIN RATIO 1.1 (1.0-2.2); BILIRUBIN,TOTAL 0.3 mg/dL (0.2-1.0); CALCIUM 8.6 mg/dL (8.5-10.3); CREATININE 0.5 mg/dL (0.6-1.3); POTASSIUM 3.5 mmol/L (3.5-4.5); TOTAL PROTEIN 5.3 g/dL (6.4-8.9)
[2024-06-03 06:41] LABS: FERRITIN 15.1 ng/mL (11.0-306.8)
[2024-06-03] MEDS: PRENATAL VITAMIN TABLET PO SCH (09:22)
--- NOTE | 2024-06-03 10:25 | PROVIDER PROGRESS NOTE ---
Subjective - Prog Note Date Prog Note Date: 06/03/24 Prog Note Time: 10:25 - Subjective Subjective: S: She reports that she is feeling well. Pain is well controlled. She is ambulating without difficulty. She is tolerating a normal diet. She is voiding spontaneously. Lochia reported as appropriate. Denies AZUL, vision changes, upper abdominal pain, CP, SOB, dizziness. O: See vitals/labs below. GENERAL: NAD Resp: non-labored respirations ABDOMEN: Soft, non tender. Fundus firm. EXT: trace LE edema. No evidence of DVT. A/P: - PPD #1 s/p , doing well - cHTN on labetalol 200mg BID - Obesity - Left adnexal mass, suspected dermoid - Rh+ - Rubella immune - Varicella immune - Continue routine care. - BPs well controlled on current regimen, will continue to monitor. Anticipate discharge home tomorrow. Javy Schumacher MD Objective - Vital Signs/Intake & Output Vital Signs: Vital Signs x48h Temp Pulse Resp BP Pulse Ox 06/03/24 09:03 98.1 F 63 15 117/73 98 06/03/24 06:00 98.1 F 77 12 110/67 96 Intake & Output: Intake & Output 05/31/24 06/01/24 06/02/24 06/03/24 23:59 23:59 23:59 23:59 Intake Total 240 3171.200 Output Total 1135 Balance 240 2036.200 - Lab Results Fish Bones: 06/03/24 05:53 06/03/24 05:53 Other Labs: Lab Results x24hrs 06/03/24 06/03/24 Range/Units 05:53 05:53 WBC 16.9 H (4.8-10.8) x10^3/uL RBC 3.30 L (4.20-5.40) 10^6/uL Hgb 10.3 L (12.0-16.0) g/dL Hct 30.1 L (37.0-47.0) % MCV 91.2 (81.0-99.0) fL MCH 31.2 H (27.0-31.0) pg MCHC 34.2 (32.0-36.0) g/dL RDW 13.3 (12.0-15.0) % Plt Count 251 (130-450) 10^3/uL MPV 11.0 H (7.9-10.8) fL Neut # (Auto) 11.5 H (1.5-6.6) 10^3/uL Lymph # (Auto) 3.7 H (1.5-3.5) 10^3/uL [place] # (Auto) 1.5 H (0.0-1.0) 10^3/uL Eos # (Auto) 0.1 (0.0-0.7) 10^3/uL Baso # (Auto) 0.1 (0.0-0.1) 10^3/uL Absolute Nucleated RBC 0.00 x10^3/uL Nucleated RBC % 0.0 /100WBC Sodium 135 (135-145) mmol/L Potassium 3.5 (3.5-4.5) mmol/L Chloride 108 (101-111) mmol/L Carbon Dioxide 21 (21-32) mmol/L Anion Gap 6.0 (6-13) BUN 10 (6-20) mg/dL Creatinine 0.5 L (0.6-1.3) mg/dL Estimated GFR (MDRD) 142 (>89) Glucose 82 (74-104) mg/dL Calcium 8.6 (8.5-10.3) mg/dL Ferritin 15.1 (11.0-306.8) ng/mL Total Bilirubin 0.3 (0.2-1.0) mg/dL AST 16 (10-42) IU/L ALT 12 (10-60) IU/L Alkaline Phosphatase 105 (42-121) IU/L Total Protein 5.3 L (6.4-8.9) g/dL Albumin 2.8 L (3.2-5.5) g/dL Globulin 2.5 (2.1-4.2) g/dL Albumin/Globulin Ratio 1.1 (1.0-2.2)
[2024-06-04 09:13] VITALS: BP 128/74; O2SAT 98
--- NOTE | 2024-06-04 15:18 | DISCHARGE SUMMARY ---
Discharge Summary Admit Date: 06/01/24 Discharge Date: 06/04/24 Discharging Provider: Jesenia Lofton MD Code Status: Attempt Resuscitation Condition at Discharge: Good Discharge Disposition: 01 Home, Self Care - DIAGNOSES Admission Diagnoses: 38 weeks. spontaneous labor. chronic htn on labetolol 200 mg bid. asthma. covid 3 weeks ago. 8 cm left ovarian mass. Discharge Diagnoses with Status of Each Condition: with vaginal delivery. no complications or tears. baby sga at 5#14 oz. htn controlled. no preeclampsia signs or sx. ovarian mass not assessed. - HPI History of Present Illness: with her first child at 38 + weeks. on labetolol to manage bp 200 mg bid. getting NSTs. bp has been good. dx wiht covid and was admitted for 2 days with this, as sats could be a bit low at times with her infection. presents now with labor. - HOSPITAL COURSE Hospital Course: patient was admitted about 6 pm. 4-5 cm. remained so all night. did not want augmentation, analgesia with epidural. did use nitrous and fenatanl bps did well with labetolol. neg GBS. received her epidural in morning 06/02. AROM and then later piticin to augment her labor. Finally got to complete and pushed for about 20 min to delivery her baby in OA position. there was meconium. Apgars were good. baby weighed only 5# 14 oz, similar to what Dari weighed when she was born. Their pp course was uneventful. no concerns. DC on ppd #2. - ALLERGIES Allergies/Adverse Reactions: Allergies Allergy/AdvReac Type Severity Reaction Status Date / Time latex Allergy Rash Verified 05/13/24 22:50 nickel Allergy Rash Verified 05/13/24 22:50 - MEDICATIONS Home Medications: Ambulatory Orders Medication Instructions Recorded Confirmed Labetalol [Trandate] 200 mg PO BID 05/13/24 06/02/24 Pnv 119/Iron Fum/Folic Acid 1 tab PO DAILY 05/14/24 06/01/24 [ 19 Tablet] Omeprazole 20 mg PO PRN PRN 06/01/24 06/02/24 - PHYSICAL EXAM AT DISCHARGE General Appearance: positive: No acute distress Neck: positive: Nml inspection Respiratory: positive: No respiratory distress Cardiovascular: positive: Regular rate & rhythm Abdomen: positive: Non-tender Extremities: positive: Non-tender, Pedal edema (minimal) Neurologic/Psychiatric: positive: Oriented x3 - LABS Result Diagrams: 06/03/24 05:53 06/03/24 05:53 - FOLLOW UP Follow Up: 1 week - TIME SPENT Time Spent in Discharge (Minutes): 20
--- NOTE | 2024-06-04 15:46 | Labor Flowsheet ---
Labor Flowsheet Datetime Report Generated by CPN: 06/04/2024 15:46 Datetime: 06/04/2024 08:59 VITAL SIGNS NBP Sys/Leatha/Mean (mmHg): 128 : 74 : 85 Pulse: 89 Datetime: 06/02/2024 20:45 Respirations: 16 Datetime: 06/02/2024 20:30 Temperature (C): 36.7 Datetime: 06/02/2024 20:05 Stage of : Datetime: 06/02/2024 19:45 PAIN Pain Scale: 2 Pain Type: Cramping Pain Assessment Comments: Datetime: 06/02/2024 19:17 Membranes Ruptured Date/Time: 06/02/2024 13:30 Amniotic Fluid Odor: None Datetime: 06/02/2024 18:59 Frequency (min): 2-3 Quality: Strong Duration (sec): 40-50 Pattern: Normal: <= 5 Contractions in 10 Minutes Resting Tone (Palpate): Relaxed FHR Baseline Rate : 125 Variability: Moderate 6-25 bpm Stage 2 Comments: delivered Datetime: 06/02/2024 18:45 Accelerations: None Decelerations: None Datetime: 06/02/2024 18:15 UTERINE ACTIVITY Monitor Mode: External ASSESSMENT A Monitor Mode: Telemetry Category: Category I Patient Care Comments: morrison out Datetime: 06/02/2024 18:14 STAGE 2 Pushing: Coached on Pushing; Urge to Push Datetime: 06/02/2024 17:41 MEDICATIONS Pitocin (milliunits): Increased to @ 8 Datetime: 06/02/2024 17:30 Pitocin Checklist: At Least 1 Acceleration of 15 bpm x 15 Seconds in 30 Minutes or Adequate Variabi lity; No More than 1 Late Deceleration Occurred in Past 30 Minutes; No More than 2 Variable Decelerat ions > 60 Seconds in Duration and decreasing >60 bpm in 30 minutes; No More than 5 Uterine Contractio ns in 10 Minutes for any 20 Minute Interval; Uterus Palpates Soft between Contractions Datetime: 06/02/2024 17:28 LaborFlag: Labor Datetime: 06/02/2024 17:02 VAGINAL EXAM Dilatation (cm): 9.0 Effacement (%): 100 Station: 1 Datetime: 06/02/2024 16:41 Comments: tracing mom Datetime: 06/02/2024 15:50 Anesthesia Comments: bedside to increase epidural dose Datetime: 06/02/2024 15:28 Exam by: Dr. Cayabyab Datetime: 06/02/2024 15:15 Communication Comments: SBAR to RN Sparks Datetime: 06/02/2024 15:11 Pain Presence: Intermittent Pain Location: Abdomen; Left Hip Pain Coping: Breathing Through Contractions Comfort Measures: Family Support Datetime: 06/02/2024 14:58 Patient Position/Activity: High Fowlers Datetime: 06/02/2024 13:56 Monitor Interventions for UA: [place] Adjusted Datetime: 06/02/2024 13:53 Monitor Interventions for FHR: Ultrasound Adjusted Datetime: 06/02/2024 13:36 Membranes Rupture Method: Artificial Amniotic Fluid Color: Light Meconium Amniotic Fluid Amount: Scant Datetime: 06/02/2024 13:30 Contraction Comments: Pt reports feeling pressure with ctxs Datetime: 06/02/2024 11:33 SpO2 (%): 96 Datetime: 06/02/2024 10:00 Temperature Route: Oral Datetime: 06/02/2024 08:27 Epidural Procedure: Loading Dose Datetime: 06/02/2024 08:21 PROCEDURE TIME OUT Procedure Verify: Correct Patient Identity; Correct Side and Site are Marked; Accurate Procedure Co nsent Form; Agreement on Procedure to be Done; Correct Patient Position; Addressed Need to Administer Antibiotics or Fluids for Irrigation; Safety Precautions Based on Patient History or Medication Use ANESTHESIA Anesthesia Plans: Epidural Datetime: 06/02/2024 08:01 PATIENT CARE IV/Blood Work: IV Bolus Started Datetime: 06/02/2024 08:00 Pain Goal: 5 Datetime: 06/02/2024 07:53 Pain Relief Measures: Comfort Measures Datetime: 06/02/2024 07:45 MATERNAL ASSESSMENT Level of Consciousness: Alert DTR's/Clonus: DTRs 3+; No Clonus Headache: Denies Breath Sounds, Left: Clear and Equal Breath Sounds, Right: Clear and Equal Nausea/Vomiting: Denies RUQ Epigastric Pain: Denies Datetime: 06/02/2024 07:00 Oxygen Method: Room Air Datetime: 06/02/2024 04:54 Medication Comments: fentanyl given as per emar Datetime: 06/02/2024 04:08 Membrane Comments: pt states she felt a gush, VE membranes present Datetime: 06/01/2024 20:00 FHR Baseline Changes: No Baseline Change Datetime: 05/19/2024 13:10 COMMUNICATION Communication: Provider at Bedside Datetime: 05/18/2024 20:51 Provider Notified (Name): Lofton Datetime: 05/14/2024 20:53 Analgesics/Sedatives: Tylenol (mg) @ 650; Benadryl (mg) @ 25
== END 2024-06-04 14:00 | disposition home or self-care (01) | DRG 807 ==
LOC: WFO 16:36 → FBP 16:38 → WFO 17:02 → FBP 17:03 → UNDOADMIN 17:03
PROVIDERS: ADMIT Obstetrics & Gynecology; ATTEND Obstetrics & Gynecology
PROC: 10907ZC Drainage of Amniotic Fluid, Therapeutic from Products of Conception, Via Natural or Artificial Opening (ICD-10-PCS; principal; 2024-06-02)
PROC: 10E0XZZ Delivery of Products of Conception, External Approach (ICD-10-PCS; 2024-06-02)
DX: O16.4 Unspecified maternal hypertension, complicating childbirth (principal); Z37.0 Single live birth; O99.52 Diseases of the respiratory system complicating childbirth; O77.0 Labor and delivery complicated by meconium in amniotic fluid; O99.214 Obesity complicating childbirth; O69.81X0 Labor and delivery complicated by cord around neck, without compression, not applicable or unspecified; Z3A.38 38 weeks gestation of pregnancy; J45.909 Unspecified asthma, uncomplicated; Z86.16 Personal history of COVID-19; O99.892 Other specified diseases and conditions complicating childbirth; N83.9 Noninflammatory disorder of ovary, fallopian tube and broad ligament, unspecified
CPT/HCPCS: 36415; 59409; 80053; 82728; 85025; 86850; 86900; 86901; 99215; A9270; J7120